=== PATIENT | male | born 1940 | race Caucasian/White ===

== ENCOUNTER → 2016-05-17 | Outpatient (CLI) | payer OTHER ==
[~2016-05-17] MED LIST: ACET-24 PO; CMD5 PO; EPLE25TA3 PO; FEBU40TA PO; FRRG PO; FRS/40 PO; HYDR-4715 PO; HYDR-5688 PO; INSDGI SC; LIDOCAINE TOP; METO50TA7 PO; OXYCODONE PO; ULT50X PO; WARF2.5T8 PO
--- NOTE | 2016-05-17 10:53 | DIAGNOSTIC IMAGING REPORT ---
LEG LENGTH STUDY (WHOLE LEG) CLINICAL HISTORY: LEG LENGTH Discrepancy, left LUMBAR Pain, sacroiliitis COMPARISON STUDY: No previous studies for comparison. FINDINGS: There are advanced arthritic changes involving both knees with marked narrowing medial joint compartments. There is a minimal leg length discrepancy with the left leg as measured from the femoral head to the tibial plafond measures 6 mm longer than the right. IMPRESSION: 1. Advanced bilateral osteoarthritic changes 2. Minimal leg length discrepancy with the left likely measuring 6 mm longer than the right Electronically signed by: Jose Galvez M.D. 05/17/2016 10:51 AM Dictated Date/Time: 05/17/2016 10:43 AM
== END | disposition home or self-care (01) ==
LOC: C.RADBC 10:08
PROVIDERS: ATTEND Physician Assistant
DX: M54.5 Low back pain (principal); M46.1 Sacroiliitis, not elsewhere classified; M17.0 Bilateral primary osteoarthritis of knee

== ENCOUNTER 2016-08-16 06:24 | Inpatient (IN) | payer OTHER ==
[2016-07-29 08:54] VITALS: BMI 33.0
--- NOTE | 2016-07-29 09:38 | PAT Medication Instructions ---
Service Date Jul 29, 2016. Current Home Medication List Eplerenone (Eplerenone), 25 MG PO QAM Febuxostat (Uloric), 40 MG PO QAM Furosemide (Lasix), 40 MG PO QAM Hydralazine Hcl (Apresoline), 20 MG PO BID Hydrocodone/Acetaminophen 5MG/325MG ([place] 5MG/325MG), 1 TABLET PO prn PRN for Pain Insulin Glargine (Lantus), 28 UNITS SC QPM Metoprolol Succ (Toprol Xl) (Toprol-Xl), 50 MG PO QAM Warfarin Sod (Coumadin *), 1 TAB PO 6XWK Warfarin Sod (Jantoven), 2.5 MG PO WK [Lidocaine Cr], 1 DOSE TOP PRN [Oxycodone], 1 TAB PO PRN Medication Instructions For Your Scheduled Surgery - Hold the following medications 5 days prior to surgery per Cardiology instructions: Warfarin Sod (Coumadin *) - Hold the following medications 24 hours prior to surgery: [Lidocaine Cr], 1 DOSE TOP PRN - Hold the following medications the morning of surgery: Eplerenone (Eplerenone), 25 MG PO QAM Furosemide (Lasix), 40 MG PO QAM - Take the following medications the morning of surgery with a sip of water OTHERWISE NOTHING TO EAT OR DRINK AFTER MIDNIGHT: Metoprolol Succ (Toprol Xl) (Toprol-Xl), 50 MG PO QAM Febuxostat (Uloric), 40 MG PO QAM Hydralazine Hcl (Apresoline), 20 MG PO BID Hydrocodone/Acetaminophen 5MG/325MG ([place] 5MG/325MG), 1 TABLET PO prn PRN for Pain (may take if needed up to 4 hours prior to surgery) [Oxycodone], 1 TAB PO PRN (may take if needed up to 4 hours prior to surgery) - Take the following medications as scheduled the night before surgery: Insulin Glargine (Lantus), 28 UNITS SC QPM Hydrocodone/Acetaminophen 5MG/325MG ([place] 5MG/325MG), 1 TABLET PO prn PRN for Pain [Oxycodone], 1 TAB PO PRN If you have any questions please call us at [phone] or [phone] or [phone]
--- NOTE | 2016-07-29 10:09 | DIAGNOSTIC IMAGING REPORT ---
CHEST PREADMISSION(PA/LAT) CLINICAL HISTORY: PAT preoperative evaluation COMPARISON STUDY: 11/09/2009 FINDINGS: Prior median sternotomy. Mild stable cardiomegaly. Lungs are clear. Diaphragms smooth. IMPRESSION: Mild stable cardiomegaly. Otherwise no acute process. Electronically signed by: Adam Womack M.D. 07/29/2016 10:08 AM Dictated Date/Time: 07/29/2016 10:06 AM
[2016-07-29 10:20] LABS: BUN/CREATININE RATIO 19.7 (10-20); CREATININE 1.9 mg/dl (0.60-1.40); POTASSIUM 4.2 mmol/L (3.5-5.1)
[2016-07-29 10:27] LABS: BASO % 0.2 %; BASO ABS # 0.02 K/uL (0-0.2); CALCIUM 8.8 mg/dl (8.5-10.1); COMPLETE YES; EOS % 1.3 %; HEMATOCRIT 37.3 % (42-52); IG% 0.2 %; LYMPH % 14.5 %; LYMPH ABS # 1.23 K/uL (1.2-3.4); MEAN CELL VOLUME 93.7 fL (80-100); MEAN CORPUSCULAR HEMOGLOBIN 30.7 pg (25-34); MEAN CORPUSCULAR HGB CONC 32.7 g/dl (32-36); MEAN PLATELET VOLUME 10.2 fL (7.4-10.4); MONO % 10.7 %; NEUT % 73.1 %; PLATELET COUNT 175 K/uL (130-400); RED BLOOD COUNT 3.98 M/uL (4.7-6.1); WHITE BLOOD COUNT 8.49 K/uL (4.8-10.8)
[2016-07-29 10:35] LABS: INR 2.7 (0.9-1.1); PARTIAL THROMBOPLASTIN RATIO 1.6; PROTHROMBIN TIME (PATIENT) 30.1 SECONDS (9.0-12.0)
[2016-07-29 11:23] LABS: ESTIMATED AVERAGE GLUCOSE 134 mg/dl; HA1C FLAG Normal (Normal)
--- NOTE | 2016-08-11 21:46 | HISTORY & PHYSICAL EXAMINATION ---
DATE OF ADMISSION: 08/16/2016 CHIEF COMPLAINT: Bilateral knee pain, left side greater than right. HISTORY OF PRESENT ILLNESS: The patient is a 76-year-old gentleman from [place], who presents for surgical treatment of his left knee. He has got 12-year history of increasing bilateral knee pain and discomfort, left side greater than right. He has been through extensive conservative treatment. He did have an open meniscectomy in the left knee back in the 1970s but done by Dr. Turpin. Pain has become more debilitating over time. He has got a very limited walking tolerance. Both knees are pretty painful, but realizes he can only get one fixed at a time. He does have a significant heart history with a valve replacement, on Coumadin, followed by Dr. Watson. He is limited in activities due to his knee pain. PAST MEDICAL HISTORY: Significant for 1. Valvular heart disease, status post valve replacement, on Coumadin. 2. Pacemaker placement. 3. Diabetes. Hemoglobin A1c is 6.3. 4. Hypertension. 5. Underlying chronic kidney disease. 6. Low back pain. PAST SURGICAL HISTORY: Include 1. Left knee open meniscectomy in his 1970s. 2. Heart valve repair in 2010 at [facility]. 3. Right hand surgery. ALLERGIES: None. CURRENT MEDICATION: 1. Uloric 40 mg a day for gout. 2. Furosemide 40 mg daily. 3. Eplerenone 25 mg. 4. Metoprolol 50 mg in the morning. 5. Hydralazine 25 mg twice a day. 6. Lantus insulin 28 units at bedtime. 7. Coumadin 5 mg a day. SOCIAL HISTORY: A 76-year-old male patient from [place]. He is . His had both of her knees replaced. MEDICAL DOCTOR: Dr. Vega. HEARING SPECIALIST: Dr. Watson. REVIEW OF SYSTEMS: Negative for current chest pain or shortness of breath. He is diabetic. He controls this quite well. No bleeding problems. No chest pain or shortness of breath. He is on Coumadin. PHYSICAL EXAMINATION: GENERAL: This is a pleasant, elderly male. HEENT: Benign. NECK: Supple. No lymphadenopathy. LUNGS: Clear to auscultation. HEART: Has a regular rate and rhythm. ABDOMEN: Soft, nontender, nondistended. EXTREMITIES: Grossly neurovascularly intact except as follows: Examination of the left knee reveals a varus alignment to his knees. He has got bony hypertrophy medially. Range of motion about 5 degrees short of full extension to 110 degrees of flexion. He has got a varus thrust with weightbearing. He is neurologically intact. Examination of the right knee reveals varus alignment. He has a varus thrust with weightbearing. Range of motion is 5-125. No instability. X-RAYS: X-rays of both knee which revealed advanced bilateral knee DJD. He has got complete loss of the joint space bilaterally. The left side is a bit worse than the right. He has got subchondral sclerosis and some destruction of the medial tibial plateau. ASSESSMENT: A 76-year-old male with pretty significant underlying heart history including valve replacement and pacemaker with advanced bilateral knee degenerative joint disease. He has failed conservative treatment and would like to proceed with operative treatment. He would like to have both of his knees replaced, but realize he cannot do both at the same time. PLAN: We are going to take him to the operating room and do a left total knee replacement. The risks and benefits of this procedure were explained to the patient including but not limited to DVT, PE, , infection, neurological injury, vascular injury, bleeding, pain, limited range of motion, stiffness, failure to relieve symptoms, incomplete relief of symptoms, need for further surgery in the future, fracture, leg length inequality, nerve palsy, dislocation, persistent pain, incomplete relief of symptoms, etc. The patient understands and desires to proceed. Informed consent was obtained. His blender snuff is Dr. Watson and will have him follow him in the hospital. He will stop his Coumadin 5 days preop. We will get a stat PT and INR on the morning of surgery. He knows to take his metoprolol the morning of surgery. As far as discharge plans, he is planning to be discharged to home with his 's assistance and the [facility] home health program. We will start him on Coumadin immediately postop. We will have to consult with Dr. Watson whether he needs Lovenox.
[~2016-08-16] VITALS: Ht 170.2 cm; Wt 97.4 kg
[2016-08-16] VITALS (10 sets, daily range): BP systolic 117–149; BP diastolic 63–80; PULSE 60–92; TEMP 36.4–37; O2SAT 93–100; Ht 170.2 cm; Wt 97.4 kg
[~2016-08-16 06:24] MED LIST changes: -ACET-24 PO; +ACETAMINOPHEN 500 MG TAB PO SCH; +BUPIVACAINE LIPOSOME 266 MG, BUPIVACAINE/EPINEPHRINE INJ 50 ML, SODIUM CHLORIDE 0.9% PF... INFIL SCH; +CEFAZOLIN 2000 MG/60 ML D5W 60 ML IV SCH; +FAMOTIDINE 20 MG TAB PO SCH; -FRRG PO; +GABAPENTIN 300 MG CAP PO SCH; +LACTATED RINGER'S 1000ML 1,000 ML IV SCH; +METOCLOPRAMIDE HCL 10 MG TAB PO SCH; +SCOPOLAMINE 1.5 MG TDSY TD SCH; +TRANEXAMIC ACID INJ 1,000 MG in SODIUM CHLORIDE 0.9% 100ML 100 ML IV SCH; -ULT50X PO
[2016-08-16] MEDS ORDERED: BUPIVACAINE 0.25% 30 ML VIAL ONE (06:41)
[2016-08-16] MEDS ORDERED: BUPIVACAINE 0.5 % 5 MG/1 ML PF 10ML VIAL ONE (06:41)
--- NOTE | 2016-08-16 06:50 | History & Physical Bridge Note ---
H&P Re-Evaluation Bridge Note: I have examined the patient, reviewed the History & Physical and in the interval since the performance of the History & Physical I have noted the following changes of clinical significance: No changes noted
[2016-08-16 07:13] LABS: INR 1.2 (0.9-1.1); PARTIAL THROMBOPLASTIN RATIO 1.2
[2016-08-16] MEDS ORDERED: FENTANYL CITRATE INJ 50 MCG/1 ML 2 ML VIAL ONE ×2 (07:14→10:32)
[2016-08-16] MEDS ORDERED: MIDAZOLAM HCL 1 MG/ML 2ML VIAL ONE (07:14)
[2016-08-16] MEDS ORDERED: BUPIVACAINE LIPOSOME 1/3% 266 MG/20 ML VIAL INFIL ONE (08:26)
[2016-08-16] MEDS ORDERED: BUPIVACAINE/EPINEPHRINE 0.25% 1:200,000 30 ML VIAL ONE (08:26)
[2016-08-16] MEDS ORDERED: BACITRACIN 50000 UNIT VIAL ONE (08:26)
[2016-08-16] MEDS ORDERED: SODIUM CHLORIDE 0.9% PF 50 ML VIAL ONE (08:26)
[2016-08-16] MEDS ORDERED: ROCURONIUM BROMIDE 10 MG/ML 5 ML VIAL ONE (08:27)
[2016-08-16] MEDS ORDERED: LIDOCAINE HCL 2% 2 ML VIAL (20MG/ML) ONE (08:27)
[2016-08-16] MEDS ORDERED: PROPOFOL IV EMULSION 10 MG/ML 20 ML VIAL IV ONE (08:27)
[2016-08-16] MEDS ORDERED: ONDANSETRON INJ 2 MG/ML 2 ML VIAL IV PRN ×2 (09:15→10:30)
[2016-08-16] MEDS ORDERED: KETOROLAC TROMETHAMINE 30 MG/ML VIAL IV. PRN (09:15)
[2016-08-16] MEDS ORDERED: LABETALOL HCL IV 5 MG/ML 20ML IV PRN (09:15)
[2016-08-16] MEDS ORDERED: ATROPINE SULFATE 0.1 MG/ML 5ML SYR IV PRN (09:15)
[2016-08-16] MEDS ORDERED: ETOMIDATE 2 MG/ML 20 ML VIAL IV ONE (09:50)
[2016-08-16] MEDS ORDERED: ONDANSETRON INJ 2 MG/ML 2 ML VIAL ONE (09:50)
[2016-08-16] MEDS ORDERED: EpHEDrine SULFATE INJ 50 MG/ML AMP ONE (10:10)
[2016-08-16] MEDS ORDERED: SODIUM CHLORIDE 0.9% 1000ML 1,000 ML IV SCH (10:28)
--- NOTE | 2016-08-16 10:28 | [facility] Post Operative Brief Note ---
Immediate Operative Summary Operative Date Aug 16, 2016. Pre-Operative Diagnosis Left Knee Advanced Degenerative Joint Disease Post-Operative Diagnosis Left Knee Advanced Degenerative Joint Disease Procedure(s) Performed Left Total Knee Arthroplasty Surgeon Dr. Light Damper Maker Surgeon(s) DEIRDRE Gutierrez Estimated Blood Loss 50 ml Findings Left Knee DJD Fluids (cc crystalloids) 1400 cc Specimens A. Left Knee Bone and Tissue Drains None Anesthesia General Complication(s) None Disposition Recovery Room / PACU
[2016-08-16] MEDS ORDERED: METOCLOPRAMIDE HCL INJ 5 MG/ML 2 ML VIAL IV PRN (10:30)
[2016-08-16] MEDS ORDERED: BISACODYL 10 MG SUPP PR PRN (10:30)
[2016-08-16] MEDS ORDERED: ZOLPIDEM TARTRATE 5 MG TAB PO PRN (10:30)
[2016-08-16] MEDS ORDERED: SILVER SULFADIAZINE 1% CR 50 GM JAR EXT PRN (10:30)
[2016-08-16] MEDS ORDERED: MAGNESIUM HYDROXIDE SUSP 30 ML UDC PO PRN (10:30)
[2016-08-16] MEDS ORDERED: TAMSULOSIN HCL 0.4 MG CAP PO PRN (10:30)
[2016-08-16] MEDS ORDERED: ALUMINUM/MAGNESIUM/SIMETH (MAALOX MAX) 30 ML UDC PO PRN (10:30)
[2016-08-16] MEDS ORDERED: NO NSAIDS SCH (10:30)
[2016-08-16] MEDS ORDERED: DEXTROSE 50% 50 ML SYR IV PRN (10:45)
[2016-08-16] MEDS ORDERED: GLUCOSE 10 TABS/TUBE PO PRN (10:45)
[2016-08-16] MEDS ORDERED: GLUCAGON FOR INJ 1 MG VIAL SQ PRN (10:45)
[2016-08-16] MEDS ORDERED: GLUCOSE 40% GEL 15 GM TUBE PO PRN (10:45)
[2016-08-16] MEDS: HYDROmorphone INJ 2 MG/ML SYR/VIAL IV PRN ×2 (10:48→10:55)
--- NOTE | 2016-08-16 11:12 | DIAGNOSTIC IMAGING REPORT ---
TWO VIEWS LEFT KNEE CLINICAL HISTORY: Postoperative examination. FINDINGS: AP and crosstable lateral portable views of the left knee are obtained. A left knee arthroplasty is in near anatomic alignment. There has been undersurface remodeling of the patella. No acute fracture is seen. There are expected postoperative changes around the knee including skin clips, soft tissue edema, and subcutaneous gas. Advanced atherosclerotic calcification is noted in the popliteal artery. IMPRESSION: Expected postoperative changes status post left knee arthroplasty. No acute fracture is seen. Electronically signed by: Devonte Lassiter M.D. 08/16/2016 11:11 AM Dictated Date/Time: 08/16/2016 11:11 AM
--- NOTE | 2016-08-16 11:16 | Anesthesiology Progress Note ---
Anesthesia Post Op Note Date & Time Aug 16, 2016 at 11:16 Vital Signs Pain Intensity: 2 Vital Signs Past 12 Hours Date Time Temp Pulse Resp B/P (MAP) Pulse Ox O2 Delivery O2 Flow Rate FiO2 08/16/16 11:10 36.5 08/16/16 11:06 63 17 123/57 96 08/16/16 11:06 63 17 08/16/16 11:01 60 15 08/16/16 11:01 60 15 125/68 98 08/16/16 10:56 60 17 114/60 98 08/16/16 10:56 60 17 08/16/16 10:51 64 16 124/57 97 08/16/16 10:51 61 16 08/16/16 10:46 60 17 08/16/16 10:46 60 17 120/51 97 08/16/16 10:41 63 20 08/16/16 10:41 63 20 118/55 97 08/16/16 10:40 133/60 08/16/16 10:36 36.3 69 16 133/60 96 Mask 10 08/16/16 07:01 36.7 92 20 149/80 93 Room Air Notes Mental Status: alert / awake / arousable, participated in evaluation Pt Amnestic to Procedure: Yes Nausea / Vomiting: adequately controlled Pain: adequately controlled Airway Patency, RR, SpO2: stable & adequate BP & HR: stable & adequate Hydration State: stable & adequate Anesthetic Complications: no major complications apparent
[2016-08-16] MEDS: FERROUS GLUCONATE 324 MG TAB PO SCH ×2 (13:41→17:28)
[2016-08-16] MEDS: ACETAMINOPHEN 500 MG TAB PO SCH ×2 (13:42→21:11)
[2016-08-16] MEDS: EPLERENONE 25 MG TAB PO SCH (13:57)
--- NOTE | 2016-08-16 14:47 | Progress Note ---
Orthopedic SOAP Note Subjective Date of Service: Aug 16, 2016. Post OP Day: Post-op Day #0 Reports: feeling well Additional Notes: No chest pain or SOB. Pain well controlled 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 (3) S/P heart valve repair Status: Chronic Objective calves soft nontender, N/V intact, dressing C/D/I, A&O x3 Leg well-aligned. N/V Intact. Date Time Temp Pulse Resp B/P (MAP) Pulse Ox O2 Delivery O2 Flow Rate FiO2 08/16/16 14:25 60 16 125/70 (88) 100 08/16/16 13:25 61 18 125/69 (87) 99 08/16/16 12:30 63 18 117/69 (85) 99 08/16/16 12:05 60 18 129/71 (90) 97 08/16/16 11:25 36.4 61 16 125/69 (87) 99 Nasal Cannula 2.0 08/16/16 11:25 Nasal Cannula 2.0 08/16/16 11:25 99 Nasal Cannula 2.0 08/16/16 11:10 36.5 08/16/16 11:06 63 17 123/57 96 08/16/16 11:06 63 17 08/16/16 11:01 60 15 08/16/16 11:01 60 15 125/68 98 08/16/16 10:56 60 17 114/60 98 08/16/16 10:56 60 17 08/16/16 10:51 64 16 124/57 97 08/16/16 10:51 61 16 08/16/16 10:46 60 17 08/16/16 10:46 60 17 120/51 97 08/16/16 10:41 63 20 08/16/16 10:41 63 20 118/55 97 08/16/16 10:40 133/60 08/16/16 10:36 36.3 69 16 133/60 96 Mask 10 08/16/16 07:01 36.7 92 20 149/80 93 Room Air Laboratory Results 24 Hours: Test 08/16/16 06:55 Prothromb Time International Ratio 1.2 Prothrombin Time 13.0 SECONDS Assessment Post-op from Right TKR. Doing well. Pain controlled. N/V intact. Plan 1.) DVT prophylaxis - TEDS, SCDs, and Coumadin to restart at loading dose tonight. 2) PT/OT - Left TKR Protocol 3.) Antbiotics for 24 hours 4.) Pain control - doing well with current tx 5.) Disposition - Plan to discharge to home with home health once recovered.
[2016-08-16] MEDS: CEFAZOLIN IV 2,000 MG in DEXTROSE 5% 50ML 50 ML IV SCH ×2 (15:42→23:37)
--- NOTE | 2016-08-16 15:55 | Cardiology Consultation ---
Cardiology Consultation Date of Service Aug 16, 2016. Cardiology Consultation Admission date:08/16/16 Date of consultation: 08/16/[address] Light Reason for consultation: Post-operative cardiac care HPI: Mr. Ortega is a very pleasant 76 yo gentleman who underwent elective L TKR with Dr. Light on 08/16/16. He was seen in pre-op risk assessment by Joanna Ortiz PA-C and Dr. Watson in our office on 07/27/16. Post op day #0 patient states that he is feeing well. No significant pain at incision site. Denies cp, sob, palpitations, lightheadedness or dizziness. He has received approximately 2L of IVF in the OR. PSHX: INSERT/REPLACE PACEMAKER,ATRIAL/VENTRICULAR 01/11/2011 NEW DDD PACEMAKER IMPLANT performed by MITALI LU IV at [facility] [place] MITRAL VALVE W/BYPASS 01/03/2011 REPLACEMENT MITRAL VALVE performed by FAROOQ FITZGERALD at [place] [facility] [place] OR KNEE SURGERY 1969 PMHX: 1. Prior mitral valve and tricuspid valve repair with complex mitral valve repair and annuloplasty, December 2010. 2. Intraoperative Mason maze procedure with radiofrequency ablation. 3. Postoperative atrial flutter, now with persistent atrial fibrillation. 4. Status post dual-chamber pacemaker insertion for conduction system disease, December 2010. 5. History of past acute hepatic impairment, 2010, resolved. 6. Moderate chronic renal insufficiency. 7. Calcific aortic valve disease, moderate to borderline severe. FAMHX: Noncontributary. SOCHX: Denies alcohol, tobacco or recreational drug use. Retired lives at home. ROS: See HPI for pertinent positives. All other 10 point review of systems is negative. ALLERGIES: Allopurinol and spironolactone. OUTPATIENT MED LIST: ULORIC 40 MG Tablet TAKE (1) TABLET DAILY. furosemide (LASIX) 40 MG Tablet TAKE (1) TABLET DAILY. Eplerenone 25 MG Tablet TAKE (1) TABLET DAILY. hydrALAZINE (APRESOLINE) 25 MG Tablet TAKE (1) TABLET TWICE A DAY. LANTUS 100 UNIT/ML injection INJECT 28 UNITS AT BEDTIME warfarin sodium (COUMADIN) 5 MG Tablet TAKE 1 TABLET ONCE DAILY, IN THE EVENING, for blood thinner metoprolol succinate XL (TOPROL XL) 50 MG TB24 TAKE 1 TABLET DAILY. BD INSULIN SYRINGE ULTRAFINE 31G X 07/05" 0.3 ML MISC USE 1 DAILY. INSULIN SYRINGE-NEEDLE U-100 30G X 1/2" 1 ML MISC Use as directed PHYSICAL: T: 36.4 HR: 60 BP: 123/60 RR: 12 GEN: A+Ox3. NAD. HEENT exam is normocephalic and atraumatic. Neck is thick. There is no jugular venous distention. There are no carotid bruits. Carotid pulses are 2/4 without delay. Lungs are clear to auscultation. Cardiovascular exam is regular with a paced rhythm. There is a harsh grade III/ systolic murmur at the right upper sternal border. S-2 remains preserved. There is no diastolic murmur. Abdomen is soft, nontender. Extremities without cyanosis or clubbing. There is no peripheral edema. There are intact distal pulses. IMPRESSION: 1. Post-operative cardiology evaluation and risk assessment prior to undergoing planned left total knee arthroplasty with Dr. Light on 08/16/16 with nerve block 2. History of mitral and tricuspid valve repair in 2010 3. Moderate aortic stenosis 4. Chronic afib on chronic anticoagulation therapy 5. S/P atrial flutter ablation 6. Dual chamber pacemaker - 12/2010 - stable device function per interrogation today. 7. Mildly reduced RV systolic function with normal LV systolic function. PLAN: -will d/c IVF given valvular disease and reduced RV systolic function. Will follow volume status clinically. -home meds already restarted, no changes at this time -coumadin restarted -post op DVT prevention already started. -will follow.
[2016-08-16] MEDS ORDERED: WARFARIN SOD 10 MG TAB PO SCH (16:00)
[2016-08-16] MEDS: INSULIN HUMAN REGULAR SC SCH ×2 (17:20→21:09)
[2016-08-16] MEDS ORDERED: FRRG PO (20:13)
[2016-08-16] MEDS ORDERED: ULT50X PO (20:13)
[2016-08-16] MEDS ORDERED: ACET-24 PO (20:13)
--- NOTE | 2016-08-16 20:16 | Discharge Instructions ---
Discharge Instructions Date of Service Aug 16, 2016. Admission Reason for Admission: Left Knee Degenerative Joint Disease Discharge Discharge Diagnosis / Problem: Left Knee REplacement Discharge Goals Goal(s): Decrease discomfort, Improve function, Increase independence, Improve disease control, Therapeutic intervention Activity Recommendations Activity Limitations: per Instructions/Follow-up section Weightbearing Status: Left weightbearing . Instructions / Follow-Up Instructions / Follow-Up ACTIVITY RECOMMENDATIONS: Physical Therapy: * You will go to physical therapy three times each week for four to six weeks after your surgery in order to regain your knee range of motion and to retrain your knee to work properly. * It is just as important to make sure you are getting your knee perfectly straight as it is to regain your knee bend. * Taking a pain pill an hour before therapy can help you have a more productive and comfortable therapy session. Home Exercise: * You were shown a series of exercises (heel props, heel slides, etc.) in the hospital. Do these exercises three to four times each day including the exercises you were shown in physical therapy. Walking: * Get up and walk several times each day. For the first four weeks, try not to stand or walk for more than one hour at a time. If you do stand or walk for more than one hour, you will not hurt anything, but your knee and leg will likely swell. * As you feel comfortable, you may change from the walker or crutches to a cane and then to independent walking. MEDICATIONS: New Medicine: * You will likely be taking one or more of these medications: 1. Tramadol - A quick and shorter-acting pain medication. Take one to two tablets every four to six hours to lessen your pain. 2. Iron Sulfate - Take two times each day for the month after surgery to help you replace the blood lost during surgery. 3. Coumadin - Thins your blood to lessen the chance of forming a blood clot. The dose of this is different for each person and is based on your blood tests that are done every Monday and . * The most common side effects of pain medicine and iron are nausea and constipation. If nausea or constipation is too much of a problem or if you have any questions about your new medicines or doses, call [facility] at [phone]. We will try to help you manage these issues. VERY IMPORTANT TO READ AND REVIEW" Pain: * The immediate post-operative period after knee replacement surgery is often quite painful. * You are given a prescription for pain medicine. You should take it, as directed, when you need it, especially before physical therapy and before going to bed. Pain that interferes with sleep is very common and can last several months. * You will likely need pain medicine for the first four to six weeks. It will not stop all of the pain. The pain will lessen and as you feel better, you may change to milder pain medicine such as Tylenol. * The most common side effects of pain medicine are nausea and constipation, so don't take more than you need. SPECIAL CARE INSTRUCTIONS: TEDs/Elastic Stockings: * The white elastic stockings help limit swelling and prevent blood clots from forming in your legs. The more you wear them, the more they work. * Wear them for six weeks after knee replacement surgery and four weeks after partial knee replacement. Prevention of Infection: * Take antibiotics one hour before any dental cleaning, dental work, urological procedure, gastrointestinal procedure or any invasive surgery in order to prevent your new joint from getting infected. * You may get the antibiotics from the doctor performing the procedure or you may call our office at before and we will call in a prescription to the pharmacy of your choice. Things to Watch For: * Drainage from the incision site that occurs more than one week after your surgery. * Severely increased knee/leg pain or swelling. * Increased redness at the incision site. * Fever above 102 degrees Fahrenheit. * Unusual chest pain or shortness of breath. * Unusual pain or burning with urination. Call [facility] at with any of the above problems or if you have any questions about your medicines or recovery. FOLLOW UP VISIT: Make an appointment to see your doctor for approximately two weeks after surgery for a progress check and staple removal by calling the office at . Current Hospital Diet Patient's current hospital diet: Diabetes Type 2 Diet Discharge Diet Recommended Diet: Diabetes Type 2 Diet Procedures Procedures Performed: Left Total Knee Arthroplasty Pending Studies Studies pending at discharge: no Laboratory Results Hemoglobin A1c Test 07/29/16 09:42 Range/Units Estimated Average Glucose 134 mg/dl Hemoglobin A1c 6.3 H 4.5-5.6 % Medical Emergencies . Who to Call and When: Medical Emergencies: If at any time you feel your situation is an emergency, please call 911 immediately. . Non-Emergent Contact Non-Emergency issues call your: Surgeon . "Provider Documentation" section prepared by Musa Light. . VTE Core Measure Inpt VTE Proph given/why not?: Warfarin (Coumadin), Yvan Serra, SCD's
[2016-08-16] MEDS: DOCUSATE SODIUM 100 MG CAP PO SCH (21:06)
[2016-08-16] MEDS: SENNA 8.6 MG TAB PO SCH (21:06)
[2016-08-16] MEDS: HydrALAZINE 10 MG TAB PO SCH (21:06)
[2016-08-17 02:50] VITALS: BP 119/66; PULSE 92; TEMP 36.7; O2SAT 94
[2016-08-17] MEDS: TRAMADOL HCL 50 MG TAB PO PRN ×3 (04:57→14:08)
[2016-08-17] MEDS: ACETAMINOPHEN 500 MG TAB PO SCH ×3 (05:24→21:08)
[2016-08-17 05:39] LABS: MEAN CELL VOLUME 96.6 fL (80-100); MEAN CORPUSCULAR HEMOGLOBIN 30.3 pg (25-34); MEAN CORPUSCULAR HGB CONC 31.4 g/dl (32-36); MEAN PLATELET VOLUME 10.7 fL (7.4-10.4); PLATELET COUNT 178 K/uL (130-400); RED BLOOD COUNT 3.83 M/uL (4.7-6.1); WHITE BLOOD COUNT 9.15 K/uL (4.8-10.8)
[2016-08-17 05:49] LABS: INR 1.2 (0.9-1.1); PROTHROMBIN TIME (PATIENT) 13.4 SECONDS (9.0-12.0)
[2016-08-17 06:03] LABS: POTASSIUM 4.7 mmol/L (3.5-5.1)
[2016-08-17 06:05] LABS: CALCIUM 8.7 mg/dl (8.5-10.1)
[2016-08-17 07:15] VITALS: BP 117/62; PULSE 62; TEMP 37; O2SAT 90
--- NOTE | 2016-08-17 08:05 | Anesthesiology Progress Note ---
Anesthesia Post Op Note Date & Time Aug 17, 2016 at 08:04 Vital Signs Vital Signs Past 12 Hours Date Time Temp Pulse Resp B/P (MAP) Pulse Ox O2 Delivery O2 Flow Rate FiO2 08/17/16 07:24 Room Air 08/17/16 07:15 37.0 62 19 117/62 (80) 90 Room Air 08/17/16 02:50 36.7 92 19 119/66 (83) 94 Room Air 08/16/16 23:59 Room Air 08/16/16 22:43 37.0 63 16 124/63 (83) 93 Room Air 08/16/16 21:04 60 128/68 (88) 96 Room Air Notes Mental Status: alert / awake / arousable, participated in evaluation Pt Amnestic to Procedure: Yes Nausea / Vomiting: adequately controlled Pain: adequately controlled Airway Patency, RR, SpO2: stable & adequate BP & HR: stable & adequate Hydration State: stable & adequate Anesthetic Complications: no major complications apparent
[2016-08-17] MEDS: INSULIN HUMAN REGULAR SC SCH ×4 (08:27→21:05)
[2016-08-17] MEDS: PANTOprazole SOD 40 MG TAB PO SCH (08:30)
[2016-08-17] MEDS: METOPROLOL SUCC 50MG EXT REL TAB PO SCH (08:30)
[2016-08-17] MEDS: MULTIVITAMIN TAB PO SCH (08:30)
[2016-08-17] MEDS: FERROUS GLUCONATE 324 MG TAB PO SCH ×3 (08:30→17:50)
[2016-08-17] MEDS: DOCUSATE SODIUM 100 MG CAP PO SCH ×2 (08:30→21:01)
[2016-08-17] MEDS: FEBUXOSTAT 40 MG TAB PO SCH (08:30)
[2016-08-17] MEDS: EPLERENONE 25 MG TAB PO SCH (08:31)
[2016-08-17] MEDS: HydrALAZINE 10 MG TAB PO SCH ×2 (08:31→21:01)
[2016-08-17] MEDS ORDERED: FUROSEMIDE 40 MG TAB PO SCH (09:00)
--- NOTE | 2016-08-17 09:24 | OPERATIVE REPORT ---
DATE: 08/16/2016 PREOPERATIVE DIAGNOSIS: Left knee DJD. POSTERIOR OPERATIVE DIAGNOSIS: Same. PROCEDURE PERFORMED: Left cemented posterior stabilized total knee arthroplasty. SURGEON: Dr. Musa Light. FOCUSER: Steffen Holland PA-C. COMPLICATIONS: None. ESTIMATED BLOOD LOSS: 50 cc. FLUID REPLACEMENT: 1400 cc of crystalloid. TOURNIQUET TIME: 58 minutes at 300 mmHg. ANESTHESIA: General. SPECIMENS: Left knee sent for pathology. OPERATIVE INDICATIONS: The patient is a 76-year-old gentleman with multiple underlying medical comorbidities who has had a long history of bilateral knee pain and discomfort. He had an open meniscectomy of his left knee done in the 70s. Over the years he developed increasing and progressive knee pain and discomfort. He failed conservative treatment. He was having trouble even getting around with his left knee. He elected to proceed with left total knee arthroplasty. OPERATIVE FINDINGS: Operative findings revealed advanced left knee DJD. He had grade 4 [id number] disease in all three compartments, most severe in the medial side. He had eburnation of the medial femoral condyle and medial tibial plateau. He had a large joint effusion. OPERATIVE IMPLANTS: 1. Biomet Vanguard size 70 left posterior stabilized femoral component. 2. A Biomet size 79 tibial tray. 3. 10 mm posterior stabilized polyethylene insert. 4. 31 x 8 all poly patella. OPERATIVE PROCEDURE: The patient was taken to the operating room, identified and placed on the operating room table in supine position. All contact areas were appropriately padded. IV antibiotics were provided by anesthesia team. General anesthetic was implemented due to his history of spinal stenosis and anticoagulation. A left thigh tourniquet was then placed. The left lower extremity was then prepped and draped in usual sterile fashion. The left leg was elevated and exsanguinated with Esmarch. Tourniquet was placed at 300 mmHg. An anterior approach to the left knee was then performed through a longitudinal incision centered over the patella. Sharp dissection was carried through the subcutaneous tissues down to the level of the extensor mechanism. A medial parapatellar arthrotomy incision was made. Some periosteal dissection was carried out medially. The fat pad was dissected from beneath the patellar tendon. The lateral patellofemoral ligament was released. Patella was everted and the knee was flexed. The osteophytes were taken off the distal femur. The ACL was chronically absent. The PCL was released from the distal femur. The tibia subluxated anteriorly. The external alignment jig was then placed in the anterior face of the tibia and adjusted 16 mm medially. Proximal tibial cuts were made to be essentially flush with the most efficient aspect of the posteromedial tibial plateau. Some osteophytes were taken off the medial and posteromedially. The tibia was sized to a size 79. Attention was then drawn to the femur. The distal femur was entered with a sharp drill bit and the intramedullary canal was suctioned. A left 6 degree valgus cutting guide was placed. The distal femoral cutting block was pinned in place. Distal femoral cut was made to take an additional 3 mm removed off the distal femur. The femur was then sized to a size 70. We did down-size this slightly. The AP cutting block was pinned parallel to the epicondylar axis which was 4 degrees of external rotation. The anterior cut, anterior chamfer cut, posterior cut, posterior chamfer cuts were made. Box cutting guide was placed and adjusted slightly lateral. The box cut was made. The knee was flexed. The remnants of the medial and lateral menisci were excised. The osteophytes were taken off the posterior aspect of the femur. A trial femoral component was placed. The tibial tray was pinned in maximum external rotation and drill and stem punch were used to scrape the defect from the proximal tibia for the tibial tray. The knee was then trialed and the 10 mm insert fit most appropriately. Attention was then drawn to the patella. The patella was cleaned of all soft tissues. Patellar thickness was measured 23 mm in thickness and was cut down to 14. Upon doing this he did have a bipartite patella and the superolateral portal area was fairly loose. Therefore I did skeletonize this out of the tendon and remove it. The patella was then sized to a size 31. Lug holes were drilled for a 31 patella. Lateral ostephyte was removed. The patella button was placed. The knee was taken through a range of motion and the patella tracked nicely with no thumbs test. Attention was then drawn toward placing the permanent components. All trial components were removed. Bone plug was placed in the distal femur to limit blood loss. A double batch Pal[place]os G cement was mixed. A left size 70 posterior stabilized femoral component, 70 tibial tray, 10 mm posterior stabilized polyethylene insert, and a 31 x 8 all poly patella were then cemented into place. These were brought out under full extension until the cement had hardened. A final cement check was then performed. The pericapsular tissues were injected with 100 cc of a combination of 20 cc of Exparel, 30 cc of normal saline, 50 cc of 0.25% Marcaine with epinephrine. Tourniquet was then let down for a final tourniquet time of 58 minutes. Hemostasis was assured with the use of electrocautery. The external mechanism was then closed with a combination of 1 PDS suture and a #1 Vicryl suture in a [id number] fashion. Extensor mechanism was checked and found to be intact. The subcutaneous tissues were then closed with 2-0 Dexon suture in a buried interrupted fashion. Skin was closed with skin vimal. The leg was then clean, dry and a sterile dressing composed of Xeroform, 4x4's, sterile cast padding and Kieran bandage were applied. The patient was then brought out of general anesthesia and transferred to the recovery room in stable condition. The patient tolerated the procedure well and there were no complications. All instrument, needle and sponge counts were correct at the end of the operation.
--- NOTE | 2016-08-17 10:22 | Orthopedic Progress Note ---
Orthopedic Progress Note Date of Service Aug 17, 2016. Subjective Post OP Day: 1 Reports: feeling well Additional Notes: Knee Sore. No chest pain or SOB Objective calves soft nontender, N/V intact, dressing C/D/I, A&O x3, toes mobile, CMS intact Date Time Temp Pulse Resp B/P (MAP) Pulse Ox O2 Delivery O2 Flow Rate FiO2 08/17/16 07:24 Room Air 08/17/16 07:15 37.0 62 19 117/62 (80) 90 Room Air 08/17/16 02:50 36.7 92 19 119/66 (83) 94 Room Air 08/16/16 23:59 Room Air 08/16/16 22:43 37.0 63 16 124/63 (83) 93 Room Air 08/16/16 21:04 60 128/68 (88) 96 Room Air 08/16/16 19:30 Nasal Cannula 2.0 08/16/16 19:10 36.5 80 16 138/76 (96) 95 Room Air 08/16/16 14:51 36.4 60 16 123/68 (86) 100 Nasal Cannula 2.0 08/16/16 14:25 60 16 125/70 (88) 100 08/16/16 13:25 61 18 125/69 (87) 99 08/16/16 12:30 63 18 117/69 (85) 99 08/16/16 12:05 60 18 129/71 (90) 97 08/16/16 11:25 36.4 61 16 125/69 (87) 99 Nasal Cannula 2.0 08/16/16 11:25 Nasal Cannula 2.0 08/16/16 11:25 99 Nasal Cannula 2.0 08/16/16 11:10 36.5 08/16/16 11:06 63 17 123/57 96 08/16/16 11:06 63 17 08/16/16 11:01 60 15 08/16/16 11:01 60 15 125/68 98 08/16/16 10:56 60 17 114/60 98 08/16/16 10:56 60 17 08/16/16 10:51 64 16 124/57 97 08/16/16 10:51 61 16 08/16/16 10:46 60 17 08/16/16 10:46 60 17 120/51 97 08/16/16 10:41 63 20 08/16/16 10:41 63 20 118/55 97 08/16/16 10:40 133/60 08/16/16 10:36 36.3 69 16 133/60 96 Mask 10 Laboratory Results 24 Hours: Test 08/17/16 05:05 Hematocrit 37.0 % Hemoglobin 11.6 g/dL Prothromb Time International Ratio 1.2 Prothrombin Time 13.4 SECONDS Assessment & Plan Assessment: Post-op from Right TKR. Doing well. Pain controlled. N/V intact. Plan: 1.) DVT prophylaxis - TEDS, SCDs, and Coumadin to keep INR between 2 and 3. 2) PT/OT - Left TKR Protocol 3.) Pain control - doing well with current tx 4.) Disposition - Plan to discharge to home with home health once recovered.
[2016-08-17] MEDS ORDERED: TAMSULOSIN HCL 0.4 MG CAP PO ONE (12:00)
--- NOTE | 2016-08-17 13:17 | Cardiology Follow-Up ---
Subjective Subjective Date of Service: Aug 17, 2016. Pt evaluation today including: conversation w/ patient, conversation w/ family , physical exam, chart review, lab review, review of studies, review of inpatient medication list Additional Details: Pt seen and examined, states that he's felling "ok". Some knee pain but just ambulated and due for pain meds. Denies cp, sob, palpitations, lightheadedness or dizziness. Called by nursing, patient having an issue voiding overnight, had to be straight cathed x 2, no complaints of hesistancy, urgency or abdominal distention per patient. No previous history of similar symptoms. 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 (3) S/P heart valve repair Status: Chronic Review of Systems Respiratory: No see HPI, No cough, No sputum, No wheezing, No shortness of breath, No dyspnea on exertion, No dyspnea at rest, No hemoptysis, No problem reported Cardiac: No see HPI, No chest pain, No orthopnea, No PND, No edema, No claudication, No palpitations, No problem reported Objective Vital Signs Last Vital Signs Documentation Date Time Temp Pulse Resp B/P (MAP) Pulse Ox O2 Delivery O2 Flow Rate FiO2 08/17/16 07:24 Room Air 08/17/16 07:15 37.0 62 19 117/62 (80) 90 08/16/16 19:30 2.0 Physical Exam: General Appearance: WD/WN, no apparent distress Eyes: bilateral eyes normal inspection, bilateral eyes PERRL, bilateral eyes EOMI ENT: normal ENT inspection, hearing grossly normal, pharynx normal Neck: supple, no adenopathy, thyroid normal, no JVD, no carotid bruits, trachea midline Respiratory/Chest: chest non-tender, lungs clear, normal breath sounds, no respiratory distress, no accessory muscle use Cardiovascular: regular rate, rhythm, no edema, no JVD, + systolic murmur (4/6 mid to late belen, rsb, 2nd ics with radiation to b/l carotids), + gallop/S4 Abdomen: normal bowel sounds, non tender, soft, no organomegaly Extremities: normal inspection, no pedal edema, no calf tenderness Neurologic/Psychiatric: 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 urinary retention patient with scopolamine patch that was placed post-operatively, the likely culprit will d/c it now doubt primary prostate issue but will start flomax for completeness sake now my suspicion is that once effects of scopolamine wear off, retention will resolve 2. aortic stenosis stable 3. diastolic dysfunction stable, does not examine as volume overloaded cont lasix, eplerenone and toprol 4. HTN stable cont hydralazine 5. afib stable coumadin restarted
[2016-08-17 14:55] VITALS: BP 150/70; PULSE 64; O2SAT 95
[2016-08-17 15:26] VITALS: BP 127/87; PULSE 80; TEMP 36.7; O2SAT 94
--- NOTE | 2016-08-17 15:37 | Progress Note ---
Progress Note Date of Service Aug 17, 2016. Progress Note Pt re-examined to follow up on urinary retention, has not urinated since scopolamine patch removed but was cathed around that time. Pt now confused, nonfocal, patient's reports that he seems to be off. Nursing reports that he was given two doses of ultram, last dose at 1400 and confusion started around 1430. Discussed with Dr. Light, will cont to monitor patient.
[2016-08-17] MEDS ORDERED: WARFARIN SOD 7.5 MG TAB PO ONE (16:00)
[2016-08-17] MEDS: SENNA 8.6 MG TAB PO SCH (21:01)
[2016-08-17 23:05] VITALS: BP 126/60; PULSE 90; TEMP 36.9; O2SAT 92
[2016-08-18] MEDS: ACETAMINOPHEN 500 MG TAB PO SCH ×3 (05:28→21:37)
[2016-08-18 06:01] LABS: INR 1.9 (0.9-1.1); PROTHROMBIN TIME (PATIENT) 20.7 SECONDS (9.0-12.0)
[2016-08-18 06:55] VITALS: BP 117/72; PULSE 85; TEMP 36.6; O2SAT 93
--- NOTE | 2016-08-18 07:54 | Clinical Documentation Query ---
CLINICAL DOCUMENTATION QUERY Query #1/2 76-y/o male who has undergone left cemented TKR. Current documentation includes, patient as having a history of CHF, valvular HD, moderate aortic stenosis, and mildy reduced RV systolic function with normal LV systolic function. The medical record documentation is now expected to include definitive and explicit description of the patient's heart failure; vague terms such as "heart failure," ventricular dysfunction," and "CHF" may not fully capture the physician's intended level of severity. In your clinical opinion is this patient being managed for: ( ) Chronic diastolic (preserved EF) CHF ( ) Chronic systolic and diastolic CHF ( ) Other explanation of clinical findings (Please Explain) ( ) Unable to determine (Please Define) ( ) Need to Discuss ( ) Not Agree The medical record reflects the following clinical findings, treatment, and risk factors. Clinical Indicators: As above. Treatment: Home meds Lasix, Toprol, Eplerenone continued. Risk Factors: Age diastolic dysfunction, valvular HD, HTN, Query #2/2 Cardiology daily progress not also states CKD. Documenting the stage of CKD will improve data integrity and will help clarify vague terms such as "renal insufficiency" or "chronic renal failure." In your clinical opinion is this patient being managed for: ( ) Chronic kidney disease, stage 3 (moderate) ( ) Other explanation of clinical findings (Please Explain) ( ) Unable to determine (Please Define) ( ) Need to Discuss ( ) Not Agree The medical record reflects the following clinical findings, treatment, and risk factors. Clinical Indicators: As above. Presenting BUN 38, Creatinine 1.90, GFR 33.3 Treatment: Currently Lasix on hold, daily PRP's Risk Factors: Age, HTN, DM, Please clarify and document your clinical opinion in the progress notes and discharge summary. Terms such as "probable", "suspected", "likely", "questionable", "possible", or "still to be ruled out" are acceptable. The stages of CKD according to the [employer] are as follows: Stage I: GFR >90 Stage II: GFR 60-89 Stage III: GFR 30-59 Stage IV: GFR 15-29 Stage V: GFR <15 IF IN AGREEMENT, YOU MUST DOCUMENT ABOVE DIAGNOSTIC STATEMENT IN DAILY PROGRESS NOTES AND DISCHARGE SUMMARY. This document is not part of the patient's record. Thank You, Antonio Tse, RN [phone]
--- NOTE | 2016-08-18 08:16 | Orthopedic Progress Note ---
Orthopedic Progress Note Date of Service Aug 18, 2016. Subjective Post OP Day: 2 Additional Notes: Denies knee pain. Some confusion yesterday Objective calves soft nontender, N/V intact, dressing C/D/I appears confused this morning No distress Date Time Temp Pulse Resp B/P (MAP) Pulse Ox O2 Delivery O2 Flow Rate FiO2 08/18/16 06:55 36.6 85 18 117/72 (87) 93 Room Air 08/18/16 00:15 Room Air 08/17/16 23:05 36.9 90 20 126/60 (82) 92 Room Air 08/17/16 15:40 Room Air 08/17/16 15:26 36.7 80 16 127/87 (100) 94 Room Air 08/17/16 14:55 64 95 Laboratory Results 24 Hours: Test 08/18/16 05:14 Prothromb Time International Ratio 1.9 Prothrombin Time 20.7 SECONDS Assessment & Plan Assessment: Post-op from Right TKR. Some confusion yesterday and today Pain controlled. N/ V intact. Plan: 1.) DVT prophylaxis - TEDS, SCDs, and Coumadin to keep INR between 2 and 3. 2) PT/OT - Left TKR Protocol 3.) Pain control - doing well with current tx 4.) Disposition - Plan to discharge to home with home health once recovered. He is confused still today. Will await cardiology eval today. Plan for discharge tomorrow possibly if confusion subsides. 5: He was seen and examined today by Dr. Casey as well.
[2016-08-18] MEDS: EPLERENONE 25 MG TAB PO SCH (08:27)
[2016-08-18] MEDS: MULTIVITAMIN TAB PO SCH (08:28)
[2016-08-18] MEDS: PANTOprazole SOD 40 MG TAB PO SCH (08:28)
[2016-08-18] MEDS: METOPROLOL SUCC 50MG EXT REL TAB PO SCH (08:28)
[2016-08-18] MEDS: HydrALAZINE 10 MG TAB PO SCH ×2 (08:28→21:37)
[2016-08-18] MEDS: TAMSULOSIN HCL 0.4 MG CAP PO SCH (08:28)
[2016-08-18] MEDS: FEBUXOSTAT 40 MG TAB PO SCH (08:28)
[2016-08-18] MEDS: FERROUS GLUCONATE 324 MG TAB PO SCH ×3 (08:29→17:55)
[2016-08-18] MEDS: DOCUSATE SODIUM 100 MG CAP PO SCH ×2 (08:29→21:37)
[2016-08-18] MEDS: INSULIN HUMAN REGULAR SC SCH ×4 (08:34→21:42)
[2016-08-18 10:51] LABS: BUN/CREATININE RATIO 16.8 (10-20); CREATININE 2.6 mg/dl (0.60-1.40); POTASSIUM 5.1 mmol/L (3.5-5.1)
[2016-08-18] MEDS: SODIUM CHLORIDE 0.9% 1000ML 1,000 ML IV SCH ×2 (12:21→21:36)
--- NOTE | 2016-08-18 14:07 | Cardiology Follow-Up ---
Subjective Subjective Date of Service: Aug 18, 2016. Pt evaluation today including: conversation w/ patient, conversation w/ family , physical exam, chart review, lab review, review of studies, review of inpatient medication list Additional Details: Pt seen and examined with at bedside. Nursing reports continued confusion overnight, somewhat improved when arrived. reports that he seems to be a little better than yesterday. Denies cp, sob, palpitations, lightheadedness or dizziness. Urinated on floor overnight, no urine output this AM though. 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 (3) S/P heart valve repair Status: Chronic Review of Systems Respiratory: No see HPI, No cough, No sputum, No wheezing, No shortness of breath, No dyspnea on exertion, No dyspnea at rest, No hemoptysis, No problem reported Cardiac: No see HPI, No chest pain, No orthopnea, No PND, No edema, No claudication, No palpitations, No problem reported Objective Vital Signs Last Vital Signs Documentation Date Time Temp Pulse Resp B/P (MAP) Pulse Ox O2 Delivery O2 Flow Rate FiO2 08/18/16 08:00 Room Air 08/18/16 06:55 36.6 85 18 117/72 (87) 93 08/16/16 19:30 2.0 Physical Exam: General Appearance: no apparent distress, + pertinent finding (confused) Eyes: bilateral eyes normal inspection, bilateral eyes PERRL, bilateral eyes EOMI ENT: normal ENT inspection, hearing grossly normal, pharynx normal Neck: supple, no adenopathy, thyroid normal, no JVD, no carotid bruits, trachea midline Respiratory/Chest: chest non-tender, lungs clear, normal breath sounds, no respiratory distress, no accessory muscle use Cardiovascular: regular rate, rhythm, no edema, no JVD, + systolic murmur (4/6 mid to late belen, rsb, 2nd ics with radiation to b/l carotids), + gallop/S4 Abdomen: normal bowel sounds, non tender, soft, no organomegaly Extremities: normal inspection, no pedal edema, no calf tenderness Neurologic/Psychiatric: assistant chief train dispatcher II-XII nml as tested, no motor/sensory deficits, alert, + disoriented Skin: normal color, warm/dry, no rash Lymphatic: no adenopathy Assessment and Plan 1. urinary retention patient with scopolamine patch that was placed post-operatively, the likely culprit doubt primary prostate issue but will start flomax for completeness sake now patient not taking in much water since becoming confused yesterday will give 1L IVF and if no urine out will scan bladder and straight cath if necessary, may consider urology eval if issue does not resolve 2. aortic stenosis stable 3. diastolic dysfunction stable, does not examine as volume overloaded cont lasix, eplerenone and toprol 4. HTN stable cont hydralazine 5. afib stable coumadin restarted 6. volume status depleted by numbers today decreased po intake with confusion will give 1L of NSS increased po intake encouraged hold lasix for now
[2016-08-18 14:20] VITALS: BP 102/76; PULSE 65; TEMP 36.9; O2SAT 93
[2016-08-18 15:23] VITALS: BP 127/69; PULSE 67; TEMP 37.3; O2SAT 93
[2016-08-18] MEDS ORDERED: WARFARIN SOD 5 MG TAB PO SCH (16:00)
--- NOTE | 2016-08-18 16:53 | Nephrology Consultation ---
Nephrology Consultation Date of Consultation: Aug 18, 2016. Attending Physician: Musa Light Requesting Physician: Musa Light Reason for Consultation: susan History of Present Illness Patient is a 76 year old male with ckd stage 3 with creatinine of 1.6 to 1.8 with mild proteinuria from advanced age, diabetes and hypertension who I follow in outpatient clinic, last seen in april. Pt underwent elective left total knee replacement on 08/16/16. pt does have cardiac history of a pacemaker and mitral valve repair with ring and tricuspid valve repair with ring and closure of patent foramen ovale followed by Dr. Watson. pt doing well. getting therapy for his knee. pain around 5/10. pt not urinating well. appetite is good. creatinine has worsened up to 2.6 since admission and on iv fluids and tolerating them well. 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 (3) S/P heart valve repair Status: Chronic gout ckd stage 3 with baseline creatinine of 1.6 to 1.8 diabetes hypertension Family History Diabetes mellitus Heart disease Hypertension Kidney disease Social History Smoking Status: Never Smoker Alcohol Use: none, other (used to drink heavily in the past) Drug Use: none Marital Status: Housing Status: lives with significant other Occupation Status: retired Allergies Coded Allergies: Allopurinol (Verified Allergy, Unknown, RASH, 08/16/16) Spironolactone (Unverified Allergy, Unknown, CHEST PAIN, 08/16/16) Medications Current Inpatient Medications Medications (Trade) Dose Ordered Sig/Sabas Route Start Time Stop Time Status Last Admin Dose Admin Miscellaneous Medication (No Nsaids) 1 ea UD N/A 08/16/16 10:30 09/15/16 10:29 Acetaminophen (Tylenol Tab) 1,000 mg Q8H PO 08/16/16 14:00 09/15/16 13:59 08/18/16 13:00 1,000 MG Magnesium Hydroxide (Milk Of Magnesia Susp) 30 ml Q6H PRN PO 08/16/16 10:30 09/15/16 10:29 Bisacodyl (Dulcolax Supp) 10 mg DAILY PRN PA 08/16/16 10:30 09/15/16 10:29 Senna (Senokot Tab) 17.2 mg HS PO 08/16/16 21:00 09/15/16 20:59 08/17/16 21:01 17.2 MG Docusate Sodium (coLACE CAP) 100 mg BID PO 08/16/16 21:00 09/15/16 20:59 08/18/16 08:29 100 MG Al Hydrox/Mg Hydrox/Simethicone (Maalox Max Susp) 15 ml Q4H PRN PO 08/16/16 10:30 09/15/16 10:29 Zolpidem Tartrate (Ambien Tab) 5 mg HSZ PRN PO 08/16/16 10:30 09/15/16 10:29 Multivitamins (Multivitamin Tab) 1 tab QAM PO 08/17/16 09:00 09/16/16 08:59 08/18/16 08:28 1 TAB Ondansetron HCl (Zofran Inj) 4 mg Q6H PRN IV 08/16/16 10:30 09/15/16 10:29 Metoclopramide HCl (Reglan Inj) 10 mg Q6H PRN IV 08/16/16 10:30 09/15/16 10:29 Ferrous Gluconate (Ferrous Gluconate Tab) 324 mg TIDM PO 08/16/16 12:30 09/15/16 12:29 08/18/16 12:21 324 MG Pantoprazole Sodium (Protonix Tab) 40 mg QAM PO 08/17/16 09:00 09/16/16 08:59 08/18/16 08:28 40 MG Silver Sulfadiazine (Silvadene 1% Crm 50GM Jar) 1 appln BID PRN EXT 08/16/16 10:30 09/15/16 10:29 Furosemide (Lasix Tab) 40 mg QAM PO 08/17/16 09:00 09/16/16 08:59 Future Hold 08/17/16 08:30 40 MG Hydralazine HCl (Apresoline Tab) 20 mg BID PO 08/16/16 21:00 09/15/16 20:59 08/18/16 08:28 20 MG Metoprolol Succinate (Toprol Xl Tab) 50 mg QAM PO 08/17/16 09:00 09/16/16 08:59 08/18/16 08:28 50 MG Febuxostat (Uloric) 40 mg QAM PO 08/17/16 09:00 09/16/16 08:59 08/18/16 08:28 40 MG Insulin Human Regular (novoLIN-R) SLIDING SCALE ACHS SC 08/16/16 12:00 09/15/16 11:59 08/18/16 12:58 1 UNITS Glucose (Glucose 40% Gel) 15-30 GRAMS 15 GRAMS... UD PRN PO 08/16/16 10:45 09/15/16 10:44 Glucose (Glucose Chew Tab) 4-8 Tablets 4 Tabl... UD PRN PO 08/16/16 10:45 09/15/16 10:44 Dextrose (Dextrose 50% 50ML Syringe) 25-50ML OF 50% DW IV FOR... UD PRN IV 08/16/16 10:45 09/15/16 10:44 Glucagon (Glucagon Inj) 1 mg UD PRN SQ 08/16/16 10:45 09/15/16 10:44 Hydromorphone HCl (Dilaudid Inj) 0.5 mg Q1H PRN IV 08/16/16 10:45 08/30/16 10:44 Epleronone (Eplerenone) 25 mg QAM PO 08/17/16 09:00 09/16/16 08:59 08/18/16 08:27 25 MG Tamsulosin HCl (Flomax Cap) 0.4 mg QAM PO 08/18/16 09:00 09/15/16 10:29 08/18/16 08:28 0.4 MG Warfarin Sodium (Coumadin Tab) 5 mg DAILY@16 PO 08/18/16 16:00 09/17/16 15:59 08/18/16 15:53 5 MG Sodium Chloride 1,000 ml @ 100 mls/hr Q10H IV 08/18/16 11:30 09/17/16 11:29 08/18/16 12:21 100 MLS/HR Home Meds and Scripts Medications Dose Route/Sig Max Daily Dose Days Date Category Dose Instructions Tramadol HCl 50 Mg Tab 50-100 Mg PO Q6H PRN 30 08/16/16 Rx Take as needed for Pain. Sb Non-Aspirin Extra Stre (Acetaminophen) 500 Mg Tab 1,000 Mg PO Q8H 30 08/16/16 Rx Take 3 times per day to lessen pain. Ferrous Gluconate 324 Mg Tab 324 Mg PO BIDM 08/16/16 Rx Take to restore blood count. [Lidocaine Cr] 1 Dose TOP PRN 07/29/16 Reported [Oxycodone] 1 Tab PO PRN 07/29/16 Reported [place] 5MG/325MG (Acetaminophen/Hydrocodone Bitart) Tab 1 Tablet PO PRN PRN 07/29/16 Reported PRN PAIN Apresoline (Hydralazine Hcl) 10 Mg Tab 20 Mg PO BID 11/19/15 Reported Uloric (Febuxostat) 40 Mg Tab 40 Mg PO QAM 90 11/15/15 Reported Eplerenone 25 Mg Tab 25 Mg PO QAM 11/15/15 Reported Jantoven (Warfarin Sodium) 2.5 Mg Tab 2.5 Mg PO WK 09/07/15 Reported MONDAY pm Toprol-Xl (Metoprolol Succinate) 50 Mg Tabcr 50 Mg PO QAM 09/07/15 Reported Lantus (Insulin Glargine) Vial 28 Units SC QPM 09/07/15 Reported Lasix (Furosemide) 40 Mg Tab 40 Mg PO QAM 09/07/15 Reported Coumadin * (Warfarin Sodium) 5 Mg Tab 1 Tab PO 6XWK 11/04/10 Reported PM EXCEPT MONDAYS Dosage titrated based on INR Review of Systems Constitutional: No fatigue Eyes: No diplopia ENT: No trouble swallowing Respiratory: No shortness of breath Cardiac: No chest pain Abdomen: No nausea, No vomiting Musculoskeletal: + problem reported (pain in knee with recent surgery) Male : + problem reported (urination decreased) all other review of systems otherwise negative Physical Exam Date Time Temp Pulse Resp B/P (MAP) Pulse Ox O2 Delivery O2 Flow Rate FiO2 08/18/16 15:23 37.3 67 18 127/69 (88) 93 Room Air 08/18/16 14:20 36.9 65 19 102/76 (85) 93 Room Air 08/18/16 08:00 Room Air 08/18/16 06:55 36.6 85 18 117/72 (87) 93 Room Air 08/18/16 00:15 Room Air 08/17/16 23:05 36.9 90 20 126/60 (82) 92 Room Air 24-Hour Column 08/19/16 08:00 Intake Total 752 ml Output Total 400 ml Balance 352 ml General Appearance: no apparent distress Eyes: + pertinent finding (no scleral icterus) ENT: normal ENT inspection Neck: supple Respiratory/Chest: lungs clear, normal breath sounds, no respiratory distress Cardiovascular: regular rate, rhythm Abdomen: normal bowel sounds, non tender, soft Extremities: + pertinent finding (left knee wrapped and iced) Neurologic/Psych: no motor/sensory deficits Skin: normal color, no jaundice Diagnostics Last 24 Hours Test 08/17/16 17:24 08/17/16 20:48 08/18/16 05:14 08/18/16 08:07 Bedside Glucose 177 mg/dl 186 mg/dl 175 mg/dl Prothrombin Time 20.7 SECONDS Prothromb Time International Ratio 1.9 Sodium Level 132 mmol/L Potassium Level 5.1 mmol/L Chloride Level 98 mmol/L Carbon Dioxide Level 25 mmol/L Anion Gap 9.0 mmol/L Blood Urea Nitrogen 44 mg/dl Creatinine 2.60 mg/dl Est Creatinine Clear Calc Drug Dose 26.5 ml/min Estimated GFR () 26.4 Estimated GFR (Non- 22.8 BUN/Creatinine Ratio 16.8 Random Glucose 169 mg/dl Calcium Level 9.0 mg/dl Test 08/18/16 12:41 Bedside Glucose 160 mg/dl Assessment & Plan susan on ckd stage 3 with creatinine up to 2.6 with previous baseline of 1.6 to 1.8. appears volume depleted to me and should start to improve with continued iv fluids. no nsaids and no contrast. appetite is good. will see if creatinine starts to improve tomorrow. if continues to worsen, will obtain a renal us. pt in good spirits and with in the room. answered questions appropriately. continue iv fluids and tolerating them well with lungs cta.
[2016-08-18 21:29] VITALS: BP 115/68; PULSE 60
[2016-08-18] MEDS: SENNA 8.6 MG TAB PO SCH (21:37)
[2016-08-18 22:55] VITALS: BP 124/63; PULSE 57; TEMP 37; O2SAT 98
[2016-08-19] MEDS: ACETAMINOPHEN 500 MG TAB PO SCH ×3 (05:33→21:38)
[2016-08-19 06:06] LABS: INR 2.7 (0.9-1.1); PROTHROMBIN TIME (PATIENT) 30.2 SECONDS (9.0-12.0)
[2016-08-19 06:35] LABS: BUN/CREATININE RATIO 20.7 (10-20); CALCIUM 8.9 mg/dl (8.5-10.1); CREATININE 2.3 mg/dl (0.60-1.40); POTASSIUM 5.4 mmol/L (3.5-5.1)
--- NOTE | 2016-08-19 06:52 | Clinical Documentation Query ---
CLINICAL DOCUMENTATION QUERY Dr. GABRIEL, In your clinical opinion is this patient being managed for: ( x ) Metabolic encephalopathy in the setting of NICK ( ) Other explanation of clinical findings (Please Explain) ( ) Unable to determine (Please Define) ( ) Need to Discuss ( ) Not Agree The medical record reflects the following clinical findings, treatment, and risk factors. Clinical Indicators: 76 yo male presenting with L knee DJD for a L TKR. Nursing progress note on 08/18 indicates pt developed confusion and hallucinations on the evening of 08/17. Noted rise in Cr from baseline of 1.6-1.8 to 2.6. Treatment: IV fluids, nephrology consult, no NSAIDs, hold lasix Risk Factors: acute renal failure Please clarify and document your clinical opinion in the progress notes and discharge summary. Terms such as "probable", "suspected", "likely", "questionable", "possible", or "still to be ruled out" are acceptable. IF IN AGREEMENT, YOU MUST DOCUMENT ABOVE DIAGNOSTIC STATEMENT IN DAILY PROGRESS NOTES AND DISCHARGE SUMMARY. This document is not part of the patient's record. Thank You, Kady Montalvo, RN [phone]
[2016-08-19 06:59] VITALS: BP 143/76; PULSE 70; TEMP 36.9; O2SAT 96
[2016-08-19] MEDS: SODIUM CHLORIDE 0.9% 1000ML 1,000 ML IV SCH ×2 (07:23→17:12)
[2016-08-19] MEDS: PANTOprazole SOD 40 MG TAB PO SCH (08:18)
[2016-08-19] MEDS: DOCUSATE SODIUM 100 MG CAP PO SCH ×2 (08:18→20:41)
[2016-08-19] MEDS: FERROUS GLUCONATE 324 MG TAB PO SCH ×3 (08:18→17:39)
[2016-08-19] MEDS: FEBUXOSTAT 40 MG TAB PO SCH (08:19)
[2016-08-19] MEDS: MULTIVITAMIN TAB PO SCH (08:19)
[2016-08-19] MEDS: TAMSULOSIN HCL 0.4 MG CAP PO SCH (08:19)
[2016-08-19] MEDS: METOPROLOL SUCC 50MG EXT REL TAB PO SCH (08:19)
[2016-08-19] MEDS: HydrALAZINE 10 MG TAB PO SCH ×2 (08:19→20:42)
[2016-08-19] MEDS: INSULIN HUMAN REGULAR SC SCH ×4 (08:23→20:50)
--- NOTE | 2016-08-19 08:56 | Nephrology Progress Note ---
Nephrology Progress Note Date of Service: Aug 19, 2016. Subjective 76 yo male seen for susan on ckd s/p elective knee replacement. creatinine improving and down to 2.3. no complaints other than pain in knee secondary to surgery. currently wearing elizabet hose on both legs to try to prevent blood clots and uncomfortable on surgical knee. no sob or chest pain. Objective Date Time Temp Pulse Resp B/P (MAP) Pulse Ox O2 Delivery O2 Flow Rate FiO2 08/19/16 07:20 Room Air 08/19/16 06:59 36.9 70 18 143/76 (98) 96 Room Air 08/18/16 22:55 37.0 57 16 124/63 (83) 98 Room Air 08/18/16 21:29 60 115/68 (84) 08/18/16 19:15 Room Air 08/18/16 15:23 37.3 67 18 127/69 (88) 93 Room Air 08/18/16 14:20 36.9 65 19 102/76 (85) 93 Room Air Physical Exam: General-aaox3 Eyes-no scleral icterus ENT-mmm Neck-supple Lungs-cta Heart-rrr Abdomen-left knee swollen Extremities-+1 edema left>right Neuro-nonfocal, limited movement of left knee Current Inpatient Medications Medications (Trade) Dose Ordered Sig/Sabas Route Start Time Stop Time Status Last Admin Dose Admin Miscellaneous Medication (No Nsaids) 1 ea UD N/A 08/16/16 10:30 09/15/16 10:29 Acetaminophen (Tylenol Tab) 1,000 mg Q8H PO 08/16/16 14:00 09/15/16 13:59 08/19/16 05:33 1,000 MG Magnesium Hydroxide (Milk Of Magnesia Susp) 30 ml Q6H PRN PO 08/16/16 10:30 09/15/16 10:29 Bisacodyl (Dulcolax Supp) 10 mg DAILY PRN HI 08/16/16 10:30 09/15/16 10:29 Senna (Senokot Tab) 17.2 mg HS PO 08/16/16 21:00 09/15/16 20:59 08/18/16 21:37 17.2 MG Docusate Sodium (coLACE CAP) 100 mg BID PO 08/16/16 21:00 7/27/17 20:59 08/19/16 08:18 100 MG Al Hydrox/Mg Hydrox/Simethicone (Maalox Max Susp) 15 ml Q4H PRN PO 08/16/16 10:30 09/15/16 10:29 Zolpidem Tartrate (Ambien Tab) 5 mg HSZ PRN PO 08/16/16 10:30 09/15/16 10:29 Multivitamins (Multivitamin Tab) 1 tab QAM PO 08/17/16 09:00 09/16/16 08:59 08/19/16 08:19 1 TAB Ondansetron HCl (Zofran Inj) 4 mg Q6H PRN IV 08/16/16 10:30 09/15/16 10:29 Metoclopramide HCl (Reglan Inj) 10 mg Q6H PRN IV 08/16/16 10:30 09/15/16 10:29 Ferrous Gluconate (Ferrous Gluconate Tab) 324 mg TIDM PO 08/16/16 12:30 09/15/16 12:29 08/19/16 08:18 324 MG Pantoprazole Sodium (Protonix Tab) 40 mg QAM PO 08/17/16 09:00 09/16/16 08:59 08/19/16 08:18 40 MG Silver Sulfadiazine (Silvadene 1% Crm 50GM Jar) 1 appln BID PRN EXT 08/16/16 10:30 09/15/16 10:29 Furosemide (Lasix Tab) 40 mg QAM PO 08/17/16 09:00 09/16/16 08:59 Future Hold 08/17/16 08:30 40 MG Hydralazine HCl (Apresoline Tab) 20 mg BID PO 08/16/16 21:00 09/15/16 20:59 08/19/16 08:19 20 MG Metoprolol Succinate (Toprol Xl Tab) 50 mg QAM PO 08/17/16 09:00 09/16/16 08:59 08/19/16 08:19 50 MG Febuxostat (Uloric) 40 mg QAM PO 08/17/16 09:00 09/16/16 08:59 08/19/16 08:19 40 MG Insulin Human Regular (novoLIN-R) SLIDING SCALE ACHS SC 08/16/16 12:00 09/15/16 11:59 08/19/16 08:23 2 UNITS Glucose (Glucose 40% Gel) 15-30 GRAMS 15 GRAMS... UD PRN PO 08/16/16 10:45 09/15/16 10:44 Glucose (Glucose Chew Tab) 4-8 Tablets 4 Tabl... UD PRN PO 08/16/16 10:45 09/15/16 10:44 Dextrose (Dextrose 50% 50ML Syringe) 25-50ML OF 50% DW IV FOR... UD PRN IV 08/16/16 10:45 09/15/16 10:44 Glucagon (Glucagon Inj) 1 mg UD PRN SQ 08/16/16 10:45 09/15/16 10:44 Hydromorphone HCl (Dilaudid Inj) 0.5 mg Q1H PRN IV 08/16/16 10:45 08/30/16 10:44 Epleronone (Eplerenone) 25 mg QAM PO 08/17/16 09:00 09/16/16 08:59 Future Hold 08/18/16 08:27 25 MG Tamsulosin HCl (Flomax Cap) 0.4 mg QAM PO 08/18/16 09:00 09/15/16 10:29 08/19/16 08:19 0.4 MG Warfarin Sodium (Coumadin Tab) 5 mg DAILY@16 PO 08/18/16 16:00 09/17/16 15:59 08/18/16 15:53 5 MG Sodium Chloride 1,000 ml @ 100 mls/hr Q10H IV 08/18/16 11:30 09/17/16 11:29 08/19/16 07:23 100 MLS/HR Last 24 Hours Test 08/18/16 12:41 08/18/16 16:53 08/18/16 21:35 08/19/16 04:57 Bedside Glucose 160 mg/dl 187 mg/dl 139 mg/dl Prothrombin Time 30.2 SECONDS Prothromb Time International Ratio 2.7 Sodium Level 133 mmol/L Potassium Level 5.4 mmol/L Chloride Level 99 mmol/L Carbon Dioxide Level 24 mmol/L Anion Gap 10.0 mmol/L Blood Urea Nitrogen 48 mg/dl Creatinine 2.30 mg/dl Est Creatinine Clear Calc Drug Dose 29.9 ml/min Estimated GFR () 30.6 Estimated GFR (Non- 26.4 BUN/Creatinine Ratio 20.7 Random Glucose 131 mg/dl Calcium Level 8.9 mg/dl Test 08/19/16 08:01 Bedside Glucose 168 mg/dl Assessment & Plan susan on ckd stage 3 with creatinine up to 2.6 with previous baseline of 1.6 to 1.8. improving and down to 2.3. hopefully will be able to stop the iv fluids tomorrow. hyperkalemia-k trending up with the susan and on a renal diet. should improve as creatinine improves. monitor for now.
[2016-08-19] MEDS: HYDROmorphone INJ 0.5 MG/0.5 ML SYR IV PRN (12:17)
--- NOTE | 2016-08-19 13:29 | Orthopedic Progress Note ---
Orthopedic Progress Note Date of Service Aug 19, 2016. Objective calves soft nontender, N/V intact, incision C/D/I Date Time Temp Pulse Resp B/P (MAP) Pulse Ox O2 Delivery O2 Flow Rate FiO2 08/19/16 07:20 Room Air 08/19/16 06:59 36.9 70 18 143/76 (98) 96 Room Air 08/18/16 22:55 37.0 57 16 124/63 (83) 98 Room Air 08/18/16 21:29 60 115/68 (84) 08/18/16 19:15 Room Air 08/18/16 15:23 37.3 67 18 127/69 (88) 93 Room Air 08/18/16 14:20 36.9 65 19 102/76 (85) 93 Room Air Laboratory Results 24 Hours: Test 08/19/16 04:57 Prothromb Time International Ratio 2.7 Prothrombin Time 30.2 SECONDS Assessment & Plan Assessment: Post-op from Right TKR. Looks better today Pain controlled. N/V intact. Plan: Plan: 1.) DVT prophylaxis - TEDS, SCDs, and Coumadin to keep INR between 2 and 3. 2) PT/OT - Left TKR Protocol 3.) Pain control - doing well with current tx 4.) Disposition - Plan to discharge to SNF if he is unable to get up from a seated position. Nephrology wants fluids for one more day. Discharge Planning DVT Prophylaxis: Coumadin Discharge Planning Notes:
[2016-08-19] MEDS ORDERED: WARFARIN SOD 5 MG TAB PO SCH (15:15)
[2016-08-19 15:18] VITALS: BP 114/65; PULSE 59; TEMP 36.8; O2SAT 96
--- NOTE | 2016-08-19 15:46 | Cardiology Follow-Up ---
Subjective Subjective Date of Service: Aug 19, 2016. Pt evaluation today including: conversation w/ patient, conversation w/ family , physical exam, chart review, lab review, review of studies, review of inpatient medication list Additional Details: Pt seen and examined with family in room, states that he feels well. Knee sore after PT today. Confusion all but resolved. Denies cp, sob, palpitations, lightheadedness or dizziness. 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 (3) S/P heart valve repair Status: Chronic Review of Systems Constitutional: No fatigue Eyes: No diplopia Respiratory: No shortness of breath Cardiac: No chest pain Musculoskeletal: + problem reported (pain in knee with recent surgery) Male : + problem reported (urination decreased) Objective Vital Signs Last Vital Signs Documentation Date Time Temp Pulse Resp B/P (MAP) Pulse Ox O2 Delivery O2 Flow Rate FiO2 08/19/16 15:18 36.8 59 16 114/65 (81) 96 Room Air 08/16/16 19:30 2.0 Physical Exam: General Appearance: WD/WN, no apparent distress Eyes: bilateral eyes normal inspection, bilateral eyes PERRL, bilateral eyes EOMI ENT: normal ENT inspection, hearing grossly normal, pharynx normal Neck: supple, no adenopathy, thyroid normal, no JVD, no carotid bruits, trachea midline Respiratory/Chest: chest non-tender, lungs clear, normal breath sounds, no respiratory distress, no accessory muscle use Cardiovascular: regular rate, rhythm, no edema, no JVD, + systolic murmur (4/6 mid to late belen, rsb, 2nd ics with radiation to b/l carotids), + gallop/S4 Abdomen: normal bowel sounds, non tender, soft, no organomegaly Extremities: normal inspection, no pedal edema, no calf tenderness Neurologic/Psychiatric: tactical/mobile watch officer II-XII nml as tested, no motor/sensory deficits, alert, normal mood/affect, oriented x 3 Skin: normal color, warm/dry, no rash Lymphatic: no adenopathy Assessment and Plan 1. urinary retention resolved 2. aortic stenosis stable 3. diastolic dysfunction stable, does not examine as volume overloaded cont lasix, eplerenone and toprol 4. HTN stable cont hydralazine 5. afib stable coumadin restarted 6. volume status improving likely secondary to decreased po intake with confusion diuretics held would restart all outpatient meds in AM and ok to d/c to home at that point
[2016-08-19 16:46] VITALS: O2SAT 96
[2016-08-19] MEDS: SENNA 8.6 MG TAB PO SCH (20:42)
[2016-08-19 20:43] VITALS: BP 132/67; PULSE 66
[2016-08-19 23:16] VITALS: BP 132/70; PULSE 68; TEMP 36.8; O2SAT 96
[2016-08-20] MEDS: SODIUM CHLORIDE 0.9% 1000ML 1,000 ML IV SCH (03:02)
[2016-08-20] MEDS: ACETAMINOPHEN 500 MG TAB PO SCH (06:00)
[2016-08-20] MEDS: HYDROmorphone INJ 0.5 MG/0.5 ML SYR IV PRN (06:14)
[2016-08-20 06:43] LABS: PROTHROMBIN TIME (PATIENT) 42.6 SECONDS (9.0-12.0)
[2016-08-20 06:57] LABS: INR 3.8 (0.9-1.1)
[2016-08-20 07:15] VITALS: BP 150/70; PULSE 69; TEMP 36.8; O2SAT 95
[2016-08-20] MEDS: FERROUS GLUCONATE 324 MG TAB PO SCH (08:20)
[2016-08-20] MEDS: HydrALAZINE 10 MG TAB PO SCH (08:21)
[2016-08-20] MEDS: PANTOprazole SOD 40 MG TAB PO SCH (08:22)
[2016-08-20] MEDS: TAMSULOSIN HCL 0.4 MG CAP PO SCH (08:22)
[2016-08-20] MEDS: MULTIVITAMIN TAB PO SCH (08:22)
[2016-08-20] MEDS: DOCUSATE SODIUM 100 MG CAP PO SCH (08:22)
[2016-08-20] MEDS: METOPROLOL SUCC 50MG EXT REL TAB PO SCH (08:23)
[2016-08-20] MEDS: FEBUXOSTAT 40 MG TAB PO SCH (08:28)
[2016-08-20] MEDS: INSULIN HUMAN REGULAR SC SCH (08:28)
[2016-08-20] MEDS ORDERED: TRAMADOL HCL 50 MG TAB PO PRN (08:45)
--- NOTE | 2016-08-20 08:48 | Orthopedic Progress Note ---
Orthopedic Progress Note Date of Service Aug 20, 2016. Subjective Post OP Day: 4 Reports: feeling well Additional Notes: Looks much better today. Still having trouble getting up, but improving. Requesting d/c to home. Objective calves soft nontender, N/V intact, dressing C/D/I Date Time Temp Pulse Resp B/P (MAP) Pulse Ox O2 Delivery O2 Flow Rate FiO2 08/20/16 07:57 Room Air 08/20/16 07:15 36.8 69 18 150/70 (96) 95 Room Air 08/19/16 23:16 36.8 68 16 132/70 (90) 96 Room Air 08/19/16 23:15 Room Air 08/19/16 20:43 66 132/67 (88) 08/19/16 16:46 96 Room Air 08/19/16 15:18 36.8 59 16 114/65 (81) 96 Room Air Laboratory Results 24 Hours: Test 08/20/16 05:08 Prothromb Time International Ratio 3.8 Prothrombin Time 42.6 SECONDS Assessment & Plan Assessment: Post-op from Right TKR. Looks better today Pain controlled. N/V intact. Plan: Plan: 1.) DVT prophylaxis - TEDS, SCDs, and Coumadin to keep INR between 2 and 3. 2) PT/OT - Left TKR Protocol 3.) Pain control - Tramadol and Tylenol 4.) Disposition - Plan to discharge to home or to SNF today. Will discuss with family Discharge Planning DVT Prophylaxis: Coumadin Discharge Planning Notes:
[2016-08-20 11:45] VITALS: BP 150/70; PULSE 69; TEMP 36.8; O2SAT 95
--- NOTE | 2016-08-27 11:07 | Discharge Summary ---
Orthopedic Discharge Summary Admission Date/Reason Aug 16, 2016 at 06:35 Left Knee Degenerative Joint Disease. Discharge Date/Disposition Aug 20, 2016 [facility] facility Diagnosis Principal Diagnosis: LEFT KNEE DJD Secondary Diagnoses/Problems: 1. Valvular heart disease, status post valve replacement, on Coumadin. 2. Pacemaker placement. 3. Diabetes. Hemoglobin A1c is 6.3. 4. Hypertension. 5. Underlying chronic kidney disease. 6. Low back pain Procedure(s) Performed LEFT TKA Consultations DR KLEIN CARDIOLOGY DR SIFUENTES NEPHROLOGY Medication Reconciliation New Medications: Acetaminophen (Sb Non-Aspirin Extra Stre) 500 Mg Tab 1000 MG PO Q8H for 30 Days, #180 TAB Take 3 times per day to lessen pain. Ferrous Gluconate (Ferrous Gluconate) 324 Mg Tab 324 MG PO BIDM for 30 Days, #60 TAB Take to restore blood count. Tramadol HCl (Tramadol HCl) 50 Mg Tab 50-100 MG PO Q6H PRN for Pain for 30 Days, #60 TAB Take as needed for Pain. Continued Medications: Eplerenone (Eplerenone) 25 Mg Tab 25 MG PO QAM Febuxostat (Uloric) 40 Mg Tab 40 MG PO QAM for 90 Days, #90 TAB 3 Refills Furosemide (Lasix) 40 Mg Tab 40 MG PO QAM, TAB Hydralazine Hcl (Apresoline) 10 Mg Tab 20 MG PO BID for Hypertension, TAB Insulin Glargine (Lantus) Vial 28 UNITS SC QPM, VIAL Metoprolol Succ (Toprol Xl) (Toprol-Xl) 50 Mg Tabcr 50 MG PO QAM, TAB Warfarin Sod (Coumadin *) 5 Mg Tab 1 TAB PO 6XWK, 0 Refills PM EXCEPT MONDAYS Dosage titrated based on INR Warfarin Sod (Jantoven) 2.5 Mg Tab 2.5 MG PO WK MONDAY pm [Lidocaine Cr] () 1 DOSE TOP PRN [Oxycodone] () 1 TAB PO PRN Discontinued Medications: Hydrocodone/Acetaminophen 5MG/325MG ([place] 5MG/325MG) Tab 1 TABLET PO prn PRN for Pain, TAB PRN PAIN Admission Physical Exam As per Admitting History & Physical. Hospital Course PAMELA WAS ADMITTED ON 08/16/16 AND UNDERWENT TKA. HE TOLERATED THE PROCEDURE WELL. THERE WERE NO COMPLICATIONS. HE WAS TRANSFERRED TO THE PACU POST OP AND LATER TO THE ORTHOPEDIC FLOOR FOR FURTHER CARE. HE WAS GIVEN ANCEF FOR ANTIBIOTIC PROPHYLAXIS. JEWEL'S, SCD'S, AND COUMADIN FOR DVT PROPHYLAXIS. HIS INR WAS MONITORED DAILY AND COUMADIN DOSED ACCORDINGLY. HE DID HAVE SOME POST OP CONFUSION AND NICK. HIS PAIN MEDICATION WAS ADJUSTED AND AND THE CONFUSION IMPROVED. HE WAS GIVEN IV FLUIDS AND HIS RENAL FUNCTION DID IMPROVE. HE WAS FOLLOWED BY CARDIOLOGY AND NEPHROLOGY SERVICES DURING HIS HOSPITAL STAY WELL. HIS H/H AND VITAL SIGNS WERE MONITORED DURING HIS HOSPITAL STAY. HE DID NOT REQUIRE ANY BLOOD TRANSFUSION. BY POD #4 HE WAS TOLERATING A GENERAL DIET, PAIN WAS CONTROLLED WITH ORAL PAIN MEDICINES, HE WAS PARTICIPATING IN PT, AND HAD NO S/S OF DVT. HIS RENAL FUNCTION AND CONFUSION IMPROVED. ON POD #4 HE WAS TRANSFERRED TO A PENITENTIARY FACILITY. HE WAS GIVEN DISCHARGE INSTRUCTIONS INCLUDING NEW PRESCRIPTIONS ABOVE. CONTINUE COUMADIN AND TEDS FOR DVT PROPHYLAXIS. CONTINUE PT, WBAT. FOLLOW UP IN 10-12 DAYS OR SOONER IF THERE ARE PROBLEMS OR CONCERNS. Discharge Instructions Please refer to the electronic Patient Visit Report (Discharge Instructions) for additional information.
== END 2016-08-20 12:15 | DRG 470 ==
LOC: C.ACU 06:24 → C.3E 06:35 → ENRESERV 10:55
PROVIDERS: ADMIT Orthopaedic Surgery Sports Medicine; ATTEND Orthopaedic Surgery Sports Medicine
PROC: 0SRD0J9 Replacement of Left Knee Joint with Synthetic Substitute, Cemented, Open Approach (ICD-10-PCS; principal; 2016-08-16 08:50)
DX: M17.12 Unilateral primary osteoarthritis, left knee (principal); N17.9 Acute kidney failure, unspecified; N18.3 Chronic kidney disease, stage 3 (moderate); E11.9 Type 2 diabetes mellitus without complications; R33.9 Retention of urine, unspecified; I35.0 Nonrheumatic aortic (valve) stenosis; E78.5 Hyperlipidemia, unspecified; E87.5 Hyperkalemia; Z95.0 Presence of cardiac pacemaker; Z79.01 Long term (current) use of anticoagulants; I12.9 Hypertensive chronic kidney disease with stage 1 through stage 4 chronic kidney disease, or unspecified chronic kidney disease

== ENCOUNTER → 2016-08-22 | Outpatient (CLI) | payer OTHER ==
[~2016-08-22] MED LIST changes: +ACET-24 PO; -ACETAMINOPHEN 500 MG TAB PO SCH; -BUPIVACAINE LIPOSOME 266 MG, BUPIVACAINE/EPINEPHRINE INJ 50 ML, SODIUM CHLORIDE 0.9% PF... INFIL SCH; -CEFAZOLIN 2000 MG/60 ML D5W 60 ML IV SCH; -FAMOTIDINE 20 MG TAB PO SCH; +FRRG PO; -GABAPENTIN 300 MG CAP PO SCH; -HYDR-5688 PO; -LACTATED RINGER'S 1000ML 1,000 ML IV SCH; -METOCLOPRAMIDE HCL 10 MG TAB PO SCH; -SCOPOLAMINE 1.5 MG TDSY TD SCH; -TRANEXAMIC ACID INJ 1,000 MG in SODIUM CHLORIDE 0.9% 100ML 100 ML IV SCH; +ULT50X PO
[2016-08-22 13:28] LABS: PROTHROMBIN TIME (PATIENT) 43.3 SECONDS (9.0-12.0)
[2016-08-22 13:35] LABS: INR 3.8 (0.9-1.1)
== END ==
LOC: C.LABCC 12:52
PROVIDERS: ATTEND Internal Medicine
DX: Z51.81 Encounter for therapeutic drug level monitoring (principal); Z79.01 Long term (current) use of anticoagulants

== ENCOUNTER → 2016-08-25 | Outpatient (CLI) | payer OTHER ==
[2016-08-25 09:47] LABS: INR 2.8 (0.9-1.1); PROTHROMBIN TIME (PATIENT) 31.3 SECONDS (9.0-12.0)
== END | disposition home or self-care (01) ==
LOC: C.LABCC 09:14
PROVIDERS: ATTEND Internal Medicine
DX: Z79.01 Long term (current) use of anticoagulants (principal); Z86.718 Personal history of other venous thrombosis and embolism

== ENCOUNTER → 2016-08-29 | Outpatient (CLI) | payer OTHER ==
[2016-08-29 16:58] LABS: INR 1.5 (0.9-1.1); PROTHROMBIN TIME (PATIENT) 16.7 SECONDS (9.0-12.0)
== END ==
LOC: C.LABBC 13:32
PROVIDERS: ATTEND Orthopaedic Surgery Sports Medicine
DX: Z47.1 Aftercare following joint replacement surgery (principal); Z96.659 Presence of unspecified artificial knee joint

== ENCOUNTER → 2017-07-10 | Day surgery (SDC) | payer OTHER ==
[2017-06-15 13:31] VITALS: Ht 172.7 cm; Wt 100.0 kg
[~2017-07-10] VITALS: Ht 172.7 cm; Wt 100.0 kg
[~2017-07-10] MED LIST changes: -ACET-24 PO; +ACETAMINOPHEN 325 MG TAB PO PRN; +AMVISC PLUS 0.8ML SYRINGE INT OCU ONE; +APR25 PO; +ATROPINE SULFATE 0.1 MG/ML 5ML SYR IV PRN; +BRIMONIDINE TART 0.2% OP SOLN PER DROP CHARGE ONE; +BRIMONIDINE TARTRATE 0.2% 5ML ONE; +BSS FLUSH ONE; -CMD5 PO; +ENDOCOAT 0.85ML SYRINGE INT OCU ONE; +EpHEDrine SULFATE INJ 50 MG/ML AMP IV PRN; +EpINEphrine INJ 1MG/ML AMP 1 MG/ML AMP ONE; -FRRG PO; -HYDR-4715 PO; +LACTATED RINGER'S 1000ML 500 ML IV SCH; +LIDOCAINE 4% OP SOLN DROP CHARGE ONE; +LIDOCAINE 4% OP SOLN DROP CHARGE OPL SCH; +LIDOCAINE HCL 1% MPF 2 ML VIAL ONE; -LIDOCAINE TOP; -METO50TA7 PO; +METO50TA8 PO; +MIDAZOLAM HCL 1 MG/ML 2ML VIAL ONE; +MOXIFLOXACIN OPH SOLN PER DROP CHARGE ONE; -OXYCODONE PO; +POVIDONE-IODINE OP SOLN 30 ML BTL ONE; +PROPARACAINE 0.5% OP SOLN PER DROP CHARGE OPL SCH; +TOBRAMYCIN/DEXAMETHASONE OPH OINT PER APPLN CHARGE ONE; -ULT50X PO; -WARF2.5T8 PO; +WARF5TAB7 PO
[2017-07-10] MEDS: PHENYLEPHRINE HCL 2.5% OP SOLN PER DROP CHARGE OPL SCH ×2 (06:34→06:38)
[2017-07-10] MEDS: TROPICAMIDE 1% OP SOLN PER DROP CHARGE OPL SCH ×2 (06:34→06:40)
[2017-07-10] MEDS: CYCLOPENTOLATE HCL 1% OP SOLN PER DROP CHARGE OPL SCH ×2 (06:35→06:41)
[2017-07-10] MEDS: KETOROLAC 0.5% OP SOLN PER DROP CHARGE OPL SCH ×2 (06:36→06:42)
[2017-07-10] MEDS: MOXIFLOXACIN OPH SOLN PER DROP CHARGE OPL SCH ×2 (06:37→06:44)
--- NOTE | 2017-07-10 07:28 | [facility] Operative Report ---
Operative Report Operative Date July 10, 2017. Pre-Operative Diagnosis Cataract Left Eye Post-Operative Diagnosis Same Procedure(s) Performed Left Cataract Phacoemulsification With Intraocular Lens Implant Surgeon Dr. Joseph Oncology Physician Assistant Surgeon(s) None Estimated Blood Loss 0ML Findings cataract left eye Fluids see anesthesia record Specimens None Drains None Anesthesia Type MAC Complication(s) none Disposition no Recovery Room / PACU Indications decreased vision left eye Description of Procedure After informed consent was obtained in the holding area the patient was wheeled back to the operating room where cardiac monitoring leads and oxygen by nasal cannula was administered by Anesthesia. Gentle IV sedation was given, and the patient's left eye was prepped and draped in usual sterile fashion. A wire lid speculum was placed into the left eye and the operating microscope was swung into position. Using 0.12 forceps and a Supersharp blade a paracentesis port was made 2 o'clock hours away from the 3 o'clock position of the patient's left eye. 1% non-preserved Lidocaine was then injected into the anterior chamber for anesthesia. A 2.0 mm keratotome blade was then used to make a shelved clear corneal incision at the 3 o'clock position of the left eye. Amvisc was injected into the anterior chamber and a cystotome and Utrata forceps were used to perform a curvilinear capsulorrhexis. BSS on a hydrodissection cannula was used to hydrodissect the lens nucleus away from the capsular bag. The phacoemulsification handpiece was then used in a stop and chop fashion to remove the lens nucleus. The irrigation and aspiration handpiece was then used to remove the residual cortical material. Amvisc was injected into the capsular bag and anterior chamber and a Bausch [employer] Lomb MX60E 22.5 Diopter intraocular lens was injected into the capsular bag. Irrigation and aspiration handpiece was used to remove the residual viscoelastic material. The wounds were hydrated and noted to be watertight. The wire lid speculum was removed from the eye. Vigamox, Brimonidine, and TobraDex ointment were placed on the eye and it was shielded. It should be noted that EndoCoat was used extensively during the case to protect the cornea endothelium. DISPOSITION: The patient tolerated the procedure well and was wheeled to the post anesthesia care unit in stable condition. I attest to the content of the Intraoperative Record and any orders documented therein. Any exceptions are noted below. I attest to the content of the Intraoperative Record and any orders documented therein. Any exceptions are noted below.
--- NOTE | 2017-07-10 07:30 | Discharge Instructions-SurgCtr ---
Discharge Instructions Date of Service July 10, 2017. Visit Reason for Visit: Left Cataract Discharge Discharge Diagnosis / Problem: cataract left eye Discharge Goals Goal(s): Improve function Medications Stopped Medications Name(s): 1/2 dose Insulin Activity Recommendations Activity Limitations: per Instructions/Follow-up section Lifting Limitations: no more than 5 pounds Anesthesia . Post Anesthesia Instructions: If you have had General Anesthesia or IV Sedation: * Do not drive today. * Resume driving when surgeon permits. * Do not make important decisions or sign legal documents today. * Call surgeon for: 1. Temperature elevations greater than 101 degrees F. 2. Uncontrollable pain. 3. Excessive bleeding. 4. Persistent nausea and vomiting. 5. Medication intolerance (nausea, vomiting or rash). * For nausea and vomiting use only clear liquids such as: tea, soda, bouillon until nausea subsides, then gradually increase diet as tolerated. * If you have any concerns or questions, call your surgeon's office. If physician is unavailable and it is an emergency, call 911 or go to the nearest emergency room. . Instructions / Follow-Up Instructions / Follow-Up ACTIVITY RECOMMENDATIONS: * Light activities * You may walk outside, read, watch television. * Mild irritation and blurred vision are common for the first few days, redness around the white part of the eye is common. MEDICATIONS: Resume previous medications unless instructed otherwise by your surgeon. Eye drops (today and tomorrow): Cipro - one drop in operative eye every 2 hours while awake Prednisolone 1% - one drop in operative eye every 2 hours while awake Ilevro - one drop operative eye 1 times daily SPECIAL CARE INSTRUCTIONS: * If any problems or concerns, please call Dr. Joseph's office at . * Keep plastic shield taped over eye to sleep at night. * Keep plastic shield taped over eye except to administer eye drops. * Keep plastic shield on until office visit the following day. FOLLOW UP VISIT: Follow-up with Dr. Joseph in the [place] office as scheduled. If not already scheduled, please call the office at . Diet Recommendations Home Diet: resume previous diet Procedures Procedures Performed: Left Cataract Phacoemulsification With Intraocular Lens Implant Pending Studies Studies pending at discharge: no Medical Emergencies . Who to Call and When: Medical Emergencies: If at any time you feel your situation is an emergency, please call 911 immediately. . Non-Emergent Contact Non-Emergency issues call your: Hadoop Infrastructure Architect . . "Provider Documentation" section prepared by Ga Joseph. .
[2017-07-10 07:33] VITALS: TEMP 36.4
[2017-07-10 07:58] VITALS: BP 127/66; PULSE 62; O2SAT 95
--- NOTE | 2017-07-10 08:04 | Anesthesia Progress Nt - [facility] ---
Anesthesia Post Op Note Date & Time July 10, 2017 at 08:04 Vital Signs Pain Intensity: 0 Vital Signs Past 12 Hours Date Time Temp Pulse Resp B/P (MAP) Pulse Ox O2 Delivery O2 Flow Rate FiO2 07/10/17 07:58 62 16 127/66 (86) 95 Room Air 07/10/17 07:33 36.4 60 16 125/72 (89) 96 Room Air 07/10/17 06:26 36.8 73 16 132/89 (103) 94 Room Air Notes Mental Status: alert / awake / arousable, participated in evaluation Pt Amnestic to Procedure: Yes Nausea / Vomiting: adequately controlled Pain: adequately controlled Airway Patency, RR, SpO2: stable & adequate BP & HR: stable & adequate Hydration State: stable & adequate Anesthetic Complications: no major complications apparent
== END | disposition home or self-care (01) ==
LOC: X.SURG 06:08
PROVIDERS: ATTEND Ophthalmology
DX: H25.12 Age-related nuclear cataract, left eye (principal); E11.22 Type 2 diabetes mellitus with diabetic chronic kidney disease; I10 Essential (primary) hypertension; I13.10 Hypertensive heart and chronic kidney disease without heart failure, with stage 1 through stage 4 chronic kidney disease, or unspecified chronic kidney disease; N18.3 Chronic kidney disease, stage 3 (moderate); I34.1 Nonrheumatic mitral (valve) prolapse; I51.9 Heart disease, unspecified; Z79.4 Long term (current) use of insulin; Z79.899 Other long term (current) drug therapy; Z88.8 Allergy status to other drugs, medicaments and biological substances

== ENCOUNTER 2020-03-23 17:39 | Inpatient (IN) ==
[2020-03-23] MEDS ORDERED: ONDANSETRON INJ 2 MG/ML 2 ML VIAL IV STA (18:17)
[2020-03-23] MEDS ORDERED: MoRPHine SULFATE 4 MG/ML 1 ML CARP\\VIAL IV PRN (18:17)
[2020-03-23] MEDS ORDERED: SODIUM CHLORIDE 0.9% 250 ML IV ONE (18:17)
--- NOTE | 2020-03-23 18:23 | Emergency Department Note ---
Impression & Plan Central abdominal pain, Incarcerated umbilical hernia, Vomiting ED Provider Note NAME: PAMELA DELAROSA AGE: 79 SEX: M : 1940 ARRIVES VIA: Walk-In INFORMANT: [Patient] ED PROVIDER(S): [Devonte Wong MD] CHIEF COMPLAINT: Abdominal pain HISTORY OF PRESENT ILLNESS: Patient is an 79-year-old male who states that about 3 hours ago he was plowing snow. When he got off of the tractor, he had pain in the mid belly. He began vomiting. The pain is a 9 on a scale 1 out of 10. His umbilical hernia is no longer reducible and is now quite tender. There has been no cough or cold or congestion. He has no chest pain. He was in baseline health prior to the pain beginning. He has had the hernia for over 10 years but it has never been caught out like this and it has never been tender. REVIEW OF SYSTEMS: See HPI for pertinent positives and negatives. A total of ten systems were reviewed and were otherwise negative. PMHx/PSHx: See Below SOCIAL HISTORY: See Below. PHYSICAL EXAM: GENERAL: Patient is in moderate distress from pain. HEENT: No acute trauma, normocephalic atraumatic, mucous membranes moist, no nasal congestion, no scleral icterus. NECK: No stridor, no adenopathy, no meningismus, trachea is midline. LUNGS: Clear to auscultation bilaterally, no wheeze, no rhonchi, breath sounds equal. HEART: 3/6 systolic murmur heard best at the right sternal border. Regular rate and rhythm. ABDOMEN: He has a 5 to 6 cm palpable umbilical hernia. The hernia is quite tender and it is clearly not reducible. The rest of the abdomen is soft. EXTREMITIES: No cyanosis, mild bilateral pedal edema, full range of motion of all the joints without pain or difficulty, no signs for acute trauma. NEUROLOGIC: Oriented x 3, no acute motor or sensory deficits, no focal weakness. SKIN: No rash, no jaundice, no diaphoresis. DIFFERENTIAL DIAGNOSIS: Appendicitis, testicular torsion, infections, diverticulitis, UTI, obstruction, mesenteric ischemia, incarcerated hernia, aortic pathology, inflammatory bowel disease, renal colic, PUD, pancreatitis, biliary pathology, volvulus, constipation, as well as other pathologies. EMERGENCY DEPARTMENT COURSE/PROCEDURES: ECG: Indication was abdominal pain. The ECG shows a ventricular pacemaker with an occasional bois forte ventricular beat. There is no worrisome ST elevation, the rate was 63. QTc was 472. Continuous Cardiac Monitoring: An order was placed for continuous cardiac monitoring. The monitor shows a rate of 60 with a ventricular pacemaker. MEDICAL DECISION MAKING: There is no leukocytosis. The patient is somewhat anemic but his hemoglobin today is better than his previous testing. There is a normal platelet count. INR is 1.9, this is consistent with his Coumadin use. Chest x-ray shows some cardiomegaly and some chronic change at the left base. His x-ray today looks similar to previous films. No concerning heart failure. ECG shows a functioning ventricular pacemaker. There is some renal insufficiency but this appears baseline looking back at previous testing. No concerning electrolyte abnormality requiring emergent correction. There was a slight elevation to the alk phos, the remaining liver enzymes were unremarkable. Covid testing is pending. On exam, the patient was quite tender over the umbilicus, he had a hernia which was not reducible. The patient had an obvious incarcerated umbilical hernia. Patient was given IV morphine for pain, IV Zofran for nausea. He was given IV saline for hydration. I spoke immediately to surgery, Dr. Pino saw the patient here in the ED, the patient is being transferred to the operating room for surgical intervention . The patient is aware of his findings, he understands the need for the operation, case management has been involved. He seems to be feeling better since the morphine was administered. 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 DM type 2 (diabetes mellitus, type 2) Dyslipidemia Gout History of cardioversion History of DVT (deep vein thrombosis) HTN (hypertension) Obesity (BMI 35.0-39.9 without comorbidity) Osteoarthritis SA node dysfunction Surgical History Cardiac pacemaker in situ History of maze procedure S/P knee surgery S/P mitral valve repair S/P patent foramen ovale closure in 2010 with repair of mitral/tricuspid valve S/P tricuspid valve repair Family History Father , age 66 Prostate cancer Mother , age 68 Stroke Brother Kidney disease Sister Diabetes Hypoglycemia Social History Smoking Status: Never smoker Second Hand Exposure: No; Hx Alcohol Use: No Hx Substance Use: No Preferred Language: Slovak Communication Ability: Effective Account Development Representative Required: No Beliefs That Will Affect Care: None marital status: Current Living Situation: Spouse Feels Safe at Home: Yes Assistive Devices: Cane Allergies Allergies Allergy/AdvReac Type Severity Reaction Status Date / Time allopurinol Allergy Unknown RASH Verified 03/23/20 18:48 spironolactone Allergy Unknown CHEST PAIN Verified 03/23/20 18:48 Home Meds Home Medications Medication Instructions Recorded Confirmed febuxostat [Uloric] 40 mg PO DAILY 11/13/17 03/23/20 furosemide 80 mg PO BID 09/04/19 03/23/20 metoprolol succinate 25 mg PO QAM 09/04/19 03/23/20 semaglutide [Ozempic] 0.5 mg SUBCUT WK 09/04/19 03/23/20 metolazone 2.5 mg PO UD PRN 03/23/20 03/23/20 potassium chloride 40 meq PO BID 03/23/20 03/23/20 warfarin See Rx Instructions .ROUTE .COMPLEX 03/23/20 03/23/20 Results & Data (ED) Vital Signs Vital Signs - 24 hr 03/23/20 17:46 03/23/20 18:54 Temperature 36.6 C Temperature Source Oral Pulse Rate 63 Pulse Rate [Left] 60 Pulse Rhythm [Left] Regular Pulse Strength [Left] Normal Respiratory Rate 18 18 Respiratory Effort / Characteristics Non-Labored Spontaneous Respiratory Depth Normal Blood Pressure 181/66 H Blood Pressure [Right Arm] 164/68 H Blood Pressure Mean 104 Blood Pressure Mean [Right Arm] 100 Blood Pressure Position [Right Arm] Lying Pulse Oximetry 99 98 Oxygen Delivery Method Room Air Room Air Sepsis Recent Fever Within 48 Hours No Sepsis New/Unexplained Change in Mental Status No Sepsis Action Taken by Nursing No Action Required Home Medications Current Medication List: was personally reviewed by me Laboratory Data Attestation: I reviewed the patient's lab results. Result diagrams: 03/23/20 18:42 03/23/20 18:42 Lab Results 03/23/20 03/23/20 03/23/20 Range/Units 18:42 18:42 18:42 WBC 10.25 (4.8-10.8) K/uL RBC 4.21 L (4.7-6.1) M/uL Hgb 12.9 L (14.0-18.0) g/dL Hct 38.1 L (42-52) % MCV 90.5 (80-100) fL MCH 30.6 (25-34) pg MCHC 33.9 (32-36) g/dL RDW Std Deviation 45.0 (36.4-46.3) fL RDW Coeff of Mustapha 13.6 (11.5-14.5) % Plt Count 142 (130-400) K/uL MPV 10.2 (7.4-10.4) fL Immature Gran % (Auto) 0.2 % Neut % (Auto) 81.9 % Lymph % (Auto) 11.5 % King[place] % (Auto) 5.5 % Eos % (Auto) 0.7 % Baso % (Auto) 0.2 % Neut # (Auto) 8.40 H (1.4-6.5) K/uL Lymph # (Auto) 1.18 L (1.2-3.4) K/uL Kingman # (Auto) 0.56 (0.11-0.59) K/uL Eos # (Auto) 0.07 (0-0.5) K/uL Baso # (Auto) 0.02 (0-0.2) K/uL Immature Gran # (Auto) 0.02 (0.00-0.02) K/uL PT 19.3 H (9.0-12.0) Seconds INR 1.9 H (0.9-1.1) APTT 33.6 H (21.0-31.0) Seconds PTT Ratio 1.2 Sodium 138 (136-145) mmol/L Potassium 3.7 (3.5-5.1) mmol/L Chloride 103 (98-107) mmol/L Carbon Dioxide 29 (21-32) mmol/L Anion Gap 6.0 (3-11) BUN 37 H (7-18) mg/dl Creatinine 1.87 H (0.6-1.4) mg/dl Est Cr Clr Drug Dosing 32.0 ml/min Est GFR ( Amer) 38.5 Est GFR (Non-Af Amer) 33.2 BUN/Creatinine Ratio 19.7 (10-20) Glucose 226 H (70-99) mg/dl Calcium 9.5 (8.5-10.1) mg/dl Total Bilirubin 1.0 (0.2-1) mg/dl AST 22 (15-37) U/L ALT 23 (12-78) U/L Alkaline Phosphatase 159 H (45-117) U/L Total Protein 8.9 H (6.4-8.2) gm/dl Albumin 3.6 (3.4-5.0) gm/dl Globulin 5.3 H (2.5-4.0) gm/dl Albumin/Globulin Ratio 0.7 L (0.9-2) COVID-19 Eval Order 03/23/20 Range/Units 18:55 WBC (4.8-10.8) K/uL RBC (4.7-6.1) M/uL Hgb (14.0-18.0) g/dL Hct (42-52) % MCV (80-100) fL MCH (25-34) pg MCHC (32-36) g/dL RDW Std Deviation (36.4-46.3) fL RDW Coeff of Mustapha (11.5-14.5) % Plt Count (130-400) K/uL MPV (7.4-10.4) fL Immature Gran % (Auto) % Neut % (Auto) % Lymph % (Auto) % King[place] % (Auto) % Eos % (Auto) % Baso % (Auto) % Neut # (Auto) (1.4-6.5) K/uL Lymph # (Auto) (1.2-3.4) K/uL Kingman # (Auto) (0.11-0.59) K/uL Eos # (Auto) (0-0.5) K/uL Baso # (Auto) (0-0.2) K/uL Immature Gran # (Auto) (0.00-0.02) K/uL PT (9.0-12.0) Seconds INR (0.9-1.1) APTT (21.0-31.0) Seconds PTT Ratio Sodium (136-145) mmol/L Potassium (3.5-5.1) mmol/L Chloride (98-107) mmol/L Carbon Dioxide (21-32) mmol/L Anion Gap (3-11) BUN (7-18) mg/dl Creatinine (0.6-1.4) mg/dl Est Cr Clr Drug Dosing ml/min Est GFR ( Amer) Est GFR (Non-Af Amer) BUN/Creatinine Ratio (10-20) Glucose (70-99) mg/dl Calcium (8.5-10.1) mg/dl Total Bilirubin (0.2-1) mg/dl AST (15-37) U/L ALT (12-78) U/L Alkaline Phosphatase (45-117) U/L Total Protein (6.4-8.2) gm/dl Albumin (3.4-5.0) gm/dl Globulin (2.5-4.0) gm/dl Albumin/Globulin Ratio (0.9-2) COVID-19 Eval Order Covid19 [facility] Data Radiologist's Impression: XR chest 1V portable HISTORY: 79 years-old Male abd pain acute atypical chest and abdominal pain COMPARISON: Chest radiographs 01/29/2018 TECHNIQUE: Portable AP view of the chest FINDINGS: Cardiac silhouette is enlarged. Prior median sternotomy with cardiac valvular replacement. Atrial exclusion device with left subclavian pacer. No pneumothorax when large pleural effusion. Blunting of the costophrenic angles. Pulmonary vascular congestion with minimal bibasilar densities. To degenerative changes of the shoulders and spine. IMPRESSION: 1. Cardiomegaly with pulmonary vascular congestion. 2. Mild bibasilar densities suggest atelectasis. Discharge Plan Visit Data Chief Complaint: Pain (Generalized) Stated Complaint: AGGRAVATED HERNIA ED Provider: Devonte Wong Discharge Problem: Central abdominal pain, Incarcerated umbilical hernia, Vomiting Patient Disposition: Admitted As Inpatient Condition: Fair Forms Stand Alone Forms: My [facility] Prescriptions Prescriptions: No Action furosemide 80 mg tablet 80 mg PO BID RF: 0 metoprolol succinate 25 mg tablet extended release 24 hr 25 mg PO QAM RF: 0 Ozempic 0.25 mg or 0.5 mg(2 mg/1.5 mL) pen injector 0.5 mg SUBCUT WK RF: 0 febuxostat [Uloric] 40 mg Tablet 40 mg PO DAILY RF: 0 potassium chloride 20 mEq tablet extended release 40 meq PO BID RF: 0 warfarin 5 mg tablet See Rx Instructions .ROUTE .COMPLEX RF: 0 metolazone 2.5 mg tablet 2.5 mg PO UD PRN (Reason: Weight Gain) RF: 0 Referrals Referrals: Amie Flores DO [Primary Care Provider] - Discharge Problem: Vomiting Qualifiers: Vomiting type: unspecified Vomiting Intractability: non-intractable Nausea presence: with nausea Qualified Code(s): R11.2 - Nausea with vomiting, unspecified
[2020-03-23 18:52] LABS: Basophils # (auto) 0.02 K/uL (0-0.2); Basophils % (auto) 0.2 %; Eosinophils # (auto) 0.07 K/uL (0-0.5); Eosinophils % (auto) 0.7 %; Hematocrit (blood only) 38.1 % (42-52); Hemoglobin 12.9 g/dL (14.0-18.0); Immature Granulocytes # (auto) 0.02 K/uL (0.00-0.02); Immature Granulocytes % (auto) 0.2 %; Lymphocytes # (auto) 1.18 K/uL (1.2-3.4); Lymphocytes % (auto) 11.5 %; Mean Corpuscular Hemoglobin 30.6 pg (25-34); Mean Corpuscular Hgb Conc 33.9 g/dL (32-36); Mean Corpuscular Volume 90.5 fL (80-100); Mean Platelet Volume 10.2 fL (7.4-10.4); Monocytes # (auto) 0.56 K/uL (0.11-0.59); Monocytes % (auto) 5.5 %; Neutrophils % (auto) 81.9 %; Platelet Count 142 K/uL (130-400); RDW Coefficient of Variation 13.6 % (11.5-14.5); Red Blood Count 4.21 M/uL (4.7-6.1); White Blood Count 10.25 K/uL (4.8-10.8)
[2020-03-23 19:03] LABS: INR 1.9 (0.9-1.1); Partial Thromboplastin Ratio 1.2; Partial Thromboplastin Time 33.6 Seconds (21.0-31.0); Prothrombin Time 19.3 Seconds (9.0-12.0)
--- NOTE | 2020-03-23 19:13 | XRay Report ---
XR chest 1V portable HISTORY: 79 years-old Male abd pain acute atypical chest and abdominal pain COMPARISON: Chest radiographs 01/29/2018 TECHNIQUE: Portable AP view of the chest FINDINGS: Cardiac silhouette is enlarged. Prior median sternotomy with cardiac valvular replacement. Atrial exc lusion device with left subclavian pacer. No pneumothorax when large pleural effusion. Blunting of th e costophrenic angles. Pulmonary vascular congestion with minimal bibasilar densities. To degenerativ e changes of the shoulders and spine. IMPRESSION: 1. Cardiomegaly with pulmonary vascular congestion. 2. Mild bibasilar densities suggest atelectasis. ACT 112: Negative or not required by law. The above report was generated using voice recognition software. It may contain grammatical, syntax o r spelling errors. Electronically signed by: Alfie Dodd M.D. 03/23/2020 7:11 PM
[2020-03-23 19:20] LABS: Albumin Level 3.6 gm/dl (3.4-5.0); BUN Creatinine Ratio 19.7 (10-20); Calcium 9.5 mg/dl (8.5-10.1); Est GFR (African American) 38.5; Est GFR (Non-African American) 33.2; Potassium 3.7 mmol/L (3.5-5.1)
[2020-03-23 19:23] LABS: Albumin Globulin Ratio 0.7 (0.9-2); Globulin 5.3 gm/dl (2.5-4.0); Total Protein 8.9 gm/dl (6.4-8.2)
--- NOTE | 2020-03-23 19:25 | History & Physical Report ---
Date of Service March 23, 2020 Assessment & Plan (1) Umbilical hernia, incarcerated: Patient has an incarcerated umbilical hernia unable to reduce likely incarcerated fatty tissue since the rest of the abdomen is benign and has had no GI symptoms and the hernia is been present for long time this point I recommended the patient to undergo repair open possible mesh if there is no ischemic tissue identified risk and complication of the surgery were explained to patient and I talked to his also and will proceed accordingly At this time we are waiting for a Covid test and INR chest x-ray that I saw shows no evidence of congestive heart failure and no pleural fluid All questions related to the surgery were explained to the patient History of Present Illness Chief Complaint: Incarcerated umbilical hernia Primary Care Provider: Amie Flores, DO This pleasant 79-year-old gentleman who walks around with a cane on Coumadin has had multiple cardiac procedures including aortic valve tricuspid valve, mitral valve maze procedure pacemaker insertion with off and on congestive heart failure history of foramen ovale closure who walks around pretty much with a cane without any shortness of breath has known to have an bellybutton hernia for a number years but today it became bigger very tender unable to touch it and came into the emergency room for evaluation we were asked to see the patient approximately 630 this evening He denies any nausea or vomiting or any other abdominal pain other than around the hernia His last INR was proxy a month ago was 2 and presently he is having lab work repeated including a Covid test He does have a history of chronic renal insufficiency atrial fibrillation gout anemia of chronic illness obstructive sleep apnea arthritis of the knee right Allergies Allergy/AdvReac Type Severity Reaction Status Date / Time allopurinol Allergy Unknown RASH Verified 03/23/20 18:48 spironolactone Allergy Unknown CHEST PAIN Verified 03/23/20 18:48 Home Medications Medication Instructions Recorded Confirmed Type febuxostat [Uloric] 40 mg PO DAILY 11/13/17 03/23/20 History furosemide 80 mg PO BID 09/04/19 03/23/20 History metoprolol succinate 25 mg PO QAM 09/04/19 03/23/20 History semaglutide [Ozempic] 0.5 mg SUBCUT WK 09/04/19 03/23/20 History metolazone 2.5 mg PO UD PRN 03/23/20 03/23/20 History potassium chloride 40 meq PO BID 03/23/20 03/23/20 History warfarin See Rx Instructions .ROUTE .COMPLEX 03/23/20 03/23/20 History Past Med/Surg History Medical History (Updated 03/23/20 @ 19:23 by Reyes Pino MD) Anemia of chronic disease Aortic stenosis Atrial fibrillation Atrial flutter CKD (chronic kidney disease), stage III 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 DM type 2 (diabetes mellitus, type 2) Dyslipidemia Gout History of cardioversion History of DVT (deep vein thrombosis) HTN (hypertension) Obesity (BMI 35.0-39.9 without comorbidity) Osteoarthritis SA node dysfunction Surgical History Cardiac pacemaker in situ History of maze procedure S/P knee surgery S/P mitral valve repair S/P patent foramen ovale closure in 2010 with repair of mitral/tricuspid valve S/P tricuspid valve repair Family History Father , age 66 Prostate cancer Mother , age 68 Stroke Brother Kidney disease Sister Diabetes Hypoglycemia Social History Smoking Status: Never smoker Second Hand Exposure: No; Hx Alcohol Use: No Hx Substance Use: No Preferred Language: Belarusian Communication Ability: Effective Lapper Required: No Beliefs That Will Affect Care: None marital status: Current Living Situation: Spouse Feels Safe at Home: Yes Assistive Devices: Cane Physical Exam Physical Exam: Patient is alert coherent in no distress Constitutional: WD/WN, vitals as above well developed and average body habitus Eyes: PERRL, conjunctivae normal, anicteric sclerae ENMT: external ear and nose normal, oropharynx normal Neck: trachea midline, no thyromegaly No jugular vein distention at 45 Respiratory: normal respiratory effort, lungs clear to auscultation normal respiratory effort Cardiovascular: Rate/Rhythm: + irregularly irregular Gastrointestinal (Abdomen): Abdomen is soft no tenderness except in the umbilical area and supraumbilical area the incarcerated hernia is approximately 6 to 8 cm very tender to just touching it there is no cellulitis and no obvious edema in the area Musculoskeletal: No pedal edema appreciated at this time Results & Data ([facility]) Vital Signs (Past 12 Hours) Vital Signs Temp Pulse Pulse Resp BP BP Pulse Ox 03/23/20 18:54 60 18 164/68 H 98 03/23/20 17:46 36.6 C 63 18 181/66 H 99
--- NOTE | 2020-03-23 19:53 | Hospitalist Consultation ---
Date of Consultation March 23, 2020 Assessment & Plan (1) Incarcerated umbilical hernia: Final Assessment and Recommendations as follows : Incarcerated umbilical hernia chronic diastolic heart failure (EF 55%, TTE 2019), patient euvolemic although with some congestion on CXR (less than last CXR from 01/2018) SSS status post PPM on Coumadin, paced rhythm, INR slightly subtherapeutic history CAD, status post AVR HTN, slightly elevated secondary to discomfort BRIGITTE (CPAP noncompliance as per records) DM2 on Ozempic and intermittent insulin at home, reasonable control as of recent outpatient hemoglobin A1c of 7.22 September 2019 CRI, creatinine at baseline chronic anemia, hemoglobin at baseline Recommend postop medical telemetry monitoring given suboptimal BP and if patient to be strictly n.p.o. to facilitate parenteral administration of home beta- cyn inpatient Management of umbilical hernia as per General Surgery Careful perioperative crystalloid administration given baseline congestion on CXR Analgesia, no NSAIDs please given kidney dysfunction Resume home diuretic Rx guided by daily PRP once diet advanced. Basal insulin, ISS BG goal [id number], update hemoglobin A1c DVT prophylaxis. SCDs while Coumadin on hold if INR less than 2. Resume Coumadin once bleeding risk is deemed to be minimal and negligible to attain goal INR between 2 and 3. Thank you very much for this consultation. Dr. Levin will follow patient's progress. Text document was generated using Fliggo voice recognition software. It may contain grammatical or spelling errors. Kindly contact undersigned for clarification of any documentation item in question. History of Present Illness Reason for Consultation: Medical management Requesting Physician: Dr. Pino Attending Physician: Dr. Pino History of Present Illness PCP : Dr. Flores History obtained from patient and records. Medical history significant for chronic diastolic heart failure (EF 55%, TTE 2019) SSS status post PPM on Coumadin, history CAD, status post AVR, HTN, hyperlipidemia, BRIGITTE (CPAP noncompliance as per records), DM2 on Ozempic and intermittent insulin at home, CRI (baseline creatinine 1.9), hx DVT as per records, chronic anemia (baseline hemoglobin 12). Last confinement January 2018 for decompensated heart failure. Patient got off his tractor today when he noted achy central abdominal pain along with a bulging umbilical mass which could not be pushed down. Some nausea, emesis. Good bowel movement in the morning. No chest pain, no S OB, no fever, no chills. No fluid retention as per patient. Patient brought to the ER for evaluation. Patient to be taken to the OR by General Surgery for incarcerated umbilical hernia. 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 Allergies Allergy/AdvReac Type Severity Reaction Status Date / Time allopurinol Allergy Unknown RASH Verified 03/23/20 18:48 spironolactone Allergy Unknown CHEST PAIN Verified 03/23/20 18:48 Home Medications Medication Instructions Recorded Confirmed Type febuxostat [Uloric] 40 mg PO DAILY 11/13/17 03/23/20 History furosemide 80 mg PO BID 09/04/19 03/23/20 History metoprolol succinate 25 mg PO QAM 09/04/19 03/23/20 History semaglutide [Ozempic] 0.5 mg SUBCUT WK 09/04/19 03/23/20 History metolazone 2.5 mg PO UD PRN 03/23/20 03/23/20 History potassium chloride 40 meq PO BID 03/23/20 03/23/20 History warfarin See Rx Instructions .ROUTE .COMPLEX 03/23/20 03/23/20 History Patient History Medical History (Updated 03/23/20 @ 20:15 by Charlie Alejandra MD) Anemia of chronic disease Aortic stenosis noted to be severe in medical note Atrial fibrillation Atrial flutter CKD (chronic kidney disease), stage III 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 DM type 2 (diabetes mellitus, type 2) Dyslipidemia Gout History of cardioversion History of DVT (deep vein thrombosis) HTN (hypertension) Obesity (BMI 35.0-39.9 without comorbidity) Osteoarthritis SA node dysfunction Surgical History Cardiac pacemaker in situ History of maze procedure S/P knee surgery S/P mitral valve repair S/P patent foramen ovale closure in 2010 with repair of mitral/tricuspid valve S/P tricuspid valve repair Family History Father , age 66 Prostate cancer Mother , age 68 Stroke Brother Kidney disease Sister Diabetes Hypoglycemia Social History Smoking Status: Never smoker Second Hand Exposure: No; Hx Alcohol Use: No Hx Substance Use: No Preferred Language: Turkmen Communication Ability: Effective Cancellation Clerk Required: No Beliefs That Will Affect Care: None marital status: Current Living Situation: Spouse Feels Safe at Home: Yes Assistive Devices: Cane Review of Systems Review of Systems: As per HPI, all 10 systems reviewed, all other ROS negative Physical Exam Physical Exam: GENERAL: Slightly uncomfortable, pleasant, no respiratory distress SKIN: Normal color, warm HEENT: Alopecia, pink palpebral conjunctivae, no ptosis, dry buccal mucosa NECK : Supple, no tenderness CHEST : CTA, no tenderness HEART : RRR, systolic murmur ABDOMEN: Some distention, tender irreducible umbilical mass EXTREMITIES : No LE swelling/tenderness, no other conspicuous deformities noted NEUROLOGIC : Coherent, no facial asymmetry, no other gross focality Results & Data Results & Data ([facility]) Vital Signs (Past 12 Hours) Vital Signs Temp Pulse Pulse Resp BP BP Pulse Ox 03/23/20 19:39 62 20 159/73 H 98 03/23/20 18:54 60 18 164/68 H 98 03/23/20 17:46 36.6 C 63 18 181/66 H 99 Laboratory Results Laboratory Results WBC 10.25 K/uL (4.8-10.8) 03/23/20 18:42 RBC 4.21 M/uL (4.7-6.1) L 03/23/20 18:42 Hgb 12.9 g/dL (14.0-18.0) L 03/23/20 18:42 Hct 38.1 % (42-52) L 03/23/20 18:42 MCV 90.5 fL (80-100) 03/23/20 18:42 MCH 30.6 pg (25-34) 03/23/20 18:42 MCHC 33.9 g/dL (32-36) 03/23/20 18:42 RDW Std Deviation 45.0 fL (36.4-46.3) 03/23/20 18:42 RDW Coeff of Mustapha 13.6 % (11.5-14.5) 03/23/20 18:42 Plt Count 142 K/uL (130-400) 03/23/20 18:42 MPV 10.2 fL (7.4-10.4) 03/23/20 18:42 Immature Gran % (Auto) 0.2 % 03/23/20 18:42 Neut % (Auto) 81.9 % 03/23/20 18:42 Lymph % (Auto) 11.5 % 03/23/20 18:42 [place] % (Auto) 5.5 % 03/23/20 18:42 Eos % (Auto) 0.7 % 03/23/20 18:42 Baso % (Auto) 0.2 % 03/23/20 18:42 Neut # (Auto) 8.40 K/uL (1.4-6.5) H 03/23/20 18:42 Lymph # (Auto) 1.18 K/uL (1.2-3.4) L 03/23/20 18:42 [place] # (Auto) 0.56 K/uL (0.11-0.59) 03/23/20 18:42 Eos # (Auto) 0.07 K/uL (0-0.5) 03/23/20 18:42 Baso # (Auto) 0.02 K/uL (0-0.2) 03/23/20 18:42 Immature Gran # (Auto) 0.02 K/uL (0.00-0.02) 03/23/20 18:42 PT 19.3 Seconds (9.0-12.0) H 03/23/20 18:42 INR 1.9 (0.9-1.1) H 03/23/20 18:42 APTT 33.6 Seconds (21.0-31.0) H 03/23/20 18:42 PTT Ratio 1.2 03/23/20 18:42 Sodium 138 mmol/L (136-145) 03/23/20 18:42 Potassium 3.7 mmol/L (3.5-5.1) 03/23/20 18:42 Chloride 103 mmol/L (98-107) 03/23/20 18:42 Carbon Dioxide 29 mmol/L (21-32) 03/23/20 18:42 Anion Gap 6.0 (3-11) 03/23/20 18:42 BUN 37 mg/dl (7-18) H 03/23/20 18:42 Creatinine 1.87 mg/dl (0.6-1.4) H 03/23/20 18:42 Est Cr Clr Drug Dosing 32.0 ml/min 03/23/20 18:42 Est GFR ( Amer) 38.5 03/23/20 18:42 Est GFR (Non-Af Amer) 33.2 03/23/20 18:42 BUN/Creatinine Ratio 19.7 (10-20) 03/23/20 18:42 Glucose 226 mg/dl (70-99) H 03/23/20 18:42 Calcium 9.5 mg/dl (8.5-10.1) 03/23/20 18:42 Total Bilirubin 1.0 mg/dl (0.2-1) 03/23/20 18:42 AST 22 U/L (15-37) 03/23/20 18:42 ALT 23 U/L (12-78) 03/23/20 18:42 Alkaline Phosphatase 159 U/L (45-117) H 03/23/20 18:42 Total Protein 8.9 gm/dl (6.4-8.2) H 03/23/20 18:42 Albumin 3.6 gm/dl (3.4-5.0) 03/23/20 18:42 Globulin 5.3 gm/dl (2.5-4.0) H 03/23/20 18:42 Albumin/Globulin Ratio 0.7 (0.9-2) L 03/23/20 18:42 COVID-19 Eval Order Covid19 IDNow [facility] 03/23/20 18:55 SARS-CoV-2, RNA, NAAT NEGATIVE (NEGATIVE) 03/23/20 18:55 Diagnostic Findings Chest x-ray : 1. Cardiomegaly with pulmonary vascular congestion. 2. Mild bibasilar densities suggest atelectasis. EKG as per my interpretation as per my interpretation rate 65, paced rhythm
[2020-03-23] MEDS ORDERED: fentaNYL citrate 100 MCG/2 ML VIAL ONE ×2 (19:58→22:32)
[2020-03-23] MEDS ORDERED: SUCCINYLCHOLINE 100MG/5ML SYR IV ONE (19:59)
[2020-03-23] MEDS ORDERED: LIDOCAINE HCL 2% 2 ML VIAL/AMP(20MG/ML) INFIL ONE (20:00)
[2020-03-23] MEDS ORDERED: PROPOFOL IV EMULSION 10 MG/ML 20 ML VIAL IV ONE (20:00)
[2020-03-23] MEDS ORDERED: ROCURONIUM BROMIDE 10 MG/ML 5 ML VIAL IV ONE (20:07)
[2020-03-23] MEDS ORDERED: ONDANSETRON INJ 2 MG/ML 2 ML VIAL ONE (20:07)
[2020-03-23] MEDS ORDERED: PHENYLEPHRINE 100MCG/ML 5ML SYR IV PRN (20:13)
[2020-03-23] MEDS ORDERED: ATROPINE SULFATE 0.1 MG/ML 10ML SYR IV PRN (20:13)
[2020-03-23] MEDS ORDERED: DEXTROSE 50% 50 ML SYRINGE IV PRN (20:13)
[2020-03-23] MEDS ORDERED: GLUCOSE 40% GEL 15 GM TUBE PO PRN (20:13)
[2020-03-23] MEDS ORDERED: LABETALOL HCL IV 5 MG/ML 20ML IV PRN (20:13)
[2020-03-23] MEDS ORDERED: CARBOHYDRATES FOR HYPOGLYCEMIA PO PRN (20:13)
[2020-03-23] MEDS ORDERED: GLUCAGON FOR INJ 1 MG VIAL SQ PRN (20:13)
[2020-03-23] MEDS ORDERED: GLUCOSE 10 TABS/TUBE PO PRN (20:13)
[2020-03-23] MEDS ORDERED: ePHEDrine sulfate 50 MG/ML AMP IV PRN (20:13)
[2020-03-23] MEDS ORDERED: ONDANSETRON INJ 2 MG/ML 2 ML VIAL IV PRN ×2 (20:13→23:32)
[2020-03-23] MEDS ORDERED: MEPERIDINE HCL 25 MG/ML CARP/VIAL IV PRN (20:13)
[2020-03-23] MEDS ORDERED: HYDROmorphone INJ 1 MG/ML SYRINGE IV PRN (20:13)
[2020-03-23] MEDS ORDERED: BUPIVACAINE/EPINEPHRINE 0.5% MPF 1:200,000 30 ML VIAL ONE (20:14)
[2020-03-23] MEDS ORDERED: BACITRACIN INJ 50,000 UNIT VIAL ONE (20:14)
--- NOTE | 2020-03-23 20:16 | Anesthesiology Consultation ---
Date of Service March 23, 2020 Covid 19 negative today. Assessment & Plan (1) Encounter for pre-operative examination: Chart Review Chart Review: Acceptable Risk for Surgery (emergency surgery) and Patient NOT seen in Pre Admission Testing Consults Requested none History Surgery Operation Date: 03/23/20 19:30 Proposed Procedures p Umbilical Hernia Repair - Reyes Pino MD Height/Weight Height: 5 ft 7 in Weight: 80.6 kg Allergies Allergy/AdvReac Type Severity Reaction Status Date / Time allopurinol Allergy Unknown RASH Verified 03/23/20 18:48 spironolactone Allergy Unknown CHEST PAIN Verified 03/23/20 18:48 Medications Home Medications Medication Instructions Recorded Confirmed Last Taken febuxostat [Uloric] 40 mg PO DAILY 11/13/17 03/23/20 03/23/20 furosemide 80 mg PO BID 09/04/19 03/23/20 09/04/19 metoprolol succinate 25 mg PO QAM 09/04/19 03/23/20 03/23/20 semaglutide [Ozempic] 0.5 mg SUBCUT WK 09/04/19 03/23/20 03/16/20 metolazone 2.5 mg PO UD PRN 03/23/20 03/23/20 Unknown potassium chloride 40 meq PO BID 03/23/20 03/23/20 03/23/20 warfarin See Rx Instructions .ROUTE .COMPLEX 03/23/20 03/23/20 Unknown NPO Date Last Intake of Fluids: 03/23/20 Time Last Intake of Fluids: 15:30 Date Last Intake of Solids: 03/23/20 Time Last Intake of Solids: 15:30 Past Medical History Medical History (Updated 03/23/20 @ 20:15 by Charlie Alejandra MD) Anemia of chronic disease Aortic stenosis noted to be severe in medical note Atrial fibrillation Atrial flutter CKD (chronic kidney disease), stage III 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 DM type 2 (diabetes mellitus, type 2) Dyslipidemia Gout History of cardioversion History of DVT (deep vein thrombosis) HTN (hypertension) Obesity (BMI 35.0-39.9 without comorbidity) Osteoarthritis SA node dysfunction Past Family History Family History Father , age 66 Prostate cancer Mother , age 68 Stroke Brother Kidney disease Sister Diabetes Hypoglycemia Past Surgical History Surgical History Cardiac pacemaker in situ History of maze procedure S/P knee surgery S/P mitral valve repair S/P patent foramen ovale closure in 2010 with repair of mitral/tricuspid valve S/P tricuspid valve repair Social History Smoking Status: Never smoker Hx Alcohol Use: No alcohol intake frequency: other Hx Substance Use: No Physical Exam Vital Signs Last Vital Signs Temp 36.6 C 03/23/20 17:46 Pulse 67 03/23/20 20:13 Resp 20 03/23/20 20:13 BP 169/75 H 03/23/20 20:13 Pulse Ox 99 03/23/20 20:11 Testing Laboratory Results 03/23/20 18:42 03/23/20 18:42 PT 19.3 Seconds (9.0-12.0) H 03/23/20 18:42 INR 1.9 (0.9-1.1) H 03/23/20 18:42 APTT 33.6 Seconds (21.0-31.0) H 03/23/20 18:42 Electrocardiogram Date: 03/23/20 Vpaced rate 63 with PVCs Chest X-Ray Date: 03/23/20 XR chest 1V portable HISTORY: 79 years-old Male abd pain acute atypical chest and abdominal pain COMPARISON: Chest radiographs 01/29/2018 TECHNIQUE: Portable AP view of the chest FINDINGS: Cardiac silhouette is enlarged. Prior median sternotomy with cardiac valvular replacement. Atrial exclusion device with left subclavian pacer. No pneumothorax when large pleural effusion. Blunting of the costophrenic angles. Pulmonary vascular congestion with minimal bibasilar densities. To degenerative changes of the shoulders and spine. IMPRESSION: 1. Cardiomegaly with pulmonary vascular congestion. 2. Mild bibasilar densities suggest atelectasis. ACT 112: Negative or not required by law. The above report was generated using voice recognition software. It may contain grammatical, syntax or spelling errors. Electronically signed by: Alfie Dodd M.D. 03/23/2020 7:11 PM Dictated: 03/23/201908Transcribed: 03/23/201908
[2020-03-23] MEDS ORDERED: PHENYLEPHRINE HCL 10 MG/ML VIAL ONE (20:20)
[2020-03-23 20:21] LABS: Magnesium 2.3 mg/dl (1.8-2.4)
[2020-03-23] MEDS ORDERED: NovoLIN-R INSULIN PER UNIT CHARGE ONE ×2 (20:27→20:29)
[2020-03-23] MEDS ORDERED: INSULIN ASPART PER SC STA (20:27)
[2020-03-23] MEDS ORDERED: GLYCOPYRROLATE 0.2 MG/ML VIAL ONE (21:15)
[2020-03-23] MEDS ORDERED: NEOSTIGMINE METHYLSULFATE 5 MG/5 ML SYR ONE (21:15)
[2020-03-23] MEDS ORDERED: ceFAZolin 2000MG 2,000 MG/15 ML SYR IV ONE (21:29)
--- NOTE | 2020-03-23 21:58 | Post Operative Brief Note ---
PG Immediate Post Op with CF Date of Surgery March 23, 2020 Pre & Post Diagnosis Operation Date: 03/23/20 19:30 Pre-Op Diagnosis: Umbilical Hernia Post-Op Diagnosis: Umbilical Hernia I identified the patient and participated in the time-out.: Yes Procedure Operation Date: 03/23/20 19:30 Actual Procedures p Open Incarcerated Umbilical Hernia Repair - Reyes Pino MD Surgeon Reyes Pino MD Retail Banker jean-claude Burrell Estimated Blood Loss 30 Findings Consistent with Post-Op Diagnosis Specimens Specimen Description: A. Incarcerated Umbilical Hernia Sac Drains Nikolas Drain (02/23")
--- NOTE | 2020-03-23 22:06 | Operative Report ---
PG Post Operative Report Pre & Post Diagnosis Operation Date: 03/23/20 19:30 Pre-Op Diagnosis: Incarcerated Umbilical Hernia Post-Op Diagnosis: Incarcerated Umbilical Hernia of Omentum and Bowel I identified the patient and participated in the time-out.: Yes Procedure Operation Date: 03/23/20 19:30 Actual Procedures p Open Incarcerated Umbilical Hernia Repair - Reyes Pino MD The patient was brought into the operating theater general endotracheal anesthesia timeout for Covid protocol the abdomen was prepped with scrub and solution properly draped systemic antibiotics on board timeout was had patient was identified we made a linear incision above the umbilicus approximately 5 cm long deepened through subcutaneous tissue we immediately were met with incarcerated fatty tissue we dissected out some the subcutaneous fascial layers until we were out of the hernial sac which we opened the patient has significant amount of incarcerated fatty tissue and surprisingly even noticed a small loop of bowel which slightly cyanotic once we freed up the incarcerated tissue which we divided and ligated with 2-0 silk we then dissected down to the fascial layer in approximately 12 o'clock position we elevated with an Allis clamp and freed up the linea alba sufficient enough to try to reduce the remaining contents it was another tight layer just distal to the linea alba onto the fatty tissue and on the omentum that we similarly divided once we freed this up we were able then to easily reduce the small bowel and the rest of the omentum intra-abdominally we placed a finger circumferentially around the defect which was approximately 2 cm or so we scored the superior aspect of the fascia through the under aspect of the subcutaneous tissue circumferentially around so we will be able to delineate the defect. We at this point noticed there was some bleeding inside where we had reduced the omentum therefore we brought all this omental tissue back up and sutured again to the point that we were quite satisfied. Of note there was no evidence of any intra-abdominal fluid. Once we entered the hernial sac and delineated the fascia circumferentially we then closed it in the 12 to 6 o'clock position single layer two #1 PDS interrupted suture I do not want to put any mesh in the area since we had evidence that the omentum was incarcerated and the bowel has been slightly compromised as initial color worried about it may been some bacteria in the area subcutaneous tissue was closed over 1/4 inch Nikolas drain that was brought out of the 7 o'clock position through separate stab wound attaching skin edge with 2-0 silk we had excess tissue around the umbilical area then we elliptically excised that to the point that we were slightly in a linear aspect we were able to reapproximate the tissue with vimal dental rolls were placed done in the umbilical crater dressing was applied procedure was tolerated well by the patient estimated blood loss approximately 25 cc addendum Jason Burrell physician historian research assistant was present throughout the case and helped with retraction exposure and wound closure Spoke with his Faina at [phone] after the procedure as I told her I would speak to her preoperatively Surgeon Reyes Pino MD Animal Doctor jean-claude Burrell Estimated Blood Loss 30 Findings Consistent with Post-Op Diagnosis Specimens incarcerated omentum Description of Procedure merda I attest to the content of the Intraoperative Record and any orders documented therein. Any exceptions are noted below.
[2020-03-23] MEDS: fentaNYL citrate 100 MCG/2 ML VIAL IV PRN ×3 (22:34→22:50)
--- NOTE | 2020-03-23 23:07 | Anesthesiology Progress Note ---
Date of Service March 23, 2020 Anesthesia Post Procedure Vital Signs Vital Signs: Temp Pulse Pulse Pulse Resp BP BP 03/23/20 22:40 60 11 L 135/61 03/23/20 22:30 61 14 142/66 H 03/23/20 22:20 64 17 139/58 L 03/23/20 22:11 36.3 C L 66 16 142/57 H 03/23/20 20:13 67 20 169/75 H 03/23/20 20:11 67 20 169/75 H 03/23/20 19:39 62 20 159/73 H 03/23/20 18:54 60 18 164/68 H 03/23/20 17:46 36.6 C 63 18 181/66 H Pulse Ox 03/23/20 22:40 100 03/23/20 22:30 99 03/23/20 22:20 99 03/23/20 22:11 98 03/23/20 20:13 03/23/20 20:11 99 03/23/20 19:39 98 03/23/20 18:54 98 03/23/20 17:46 99 Pain Intensity Abdomen: Pain Intensity: 2 Transfer of Care Handoff Completed per policy Notes Mental Status: alert / awake / arousable Patient Amnestic to Procedure: Yes Nausea / Vomiting: adequately controlled Pain: adequately controlled Airway Patency, RR, SpO2: stable & adequate BP & HR: stable & adequate Hydration State: stable & adequate Anesthetic Complications: no major complications apparent and Pt Satisfied with anesthetic care Notes: The patient is awake and comfortable. His vital signs are stable. Postop BSG is 137.
[2020-03-23] MEDS ORDERED: oxyCODONE HCL SOLN 5 MG/5 ML UDC PO PRN (23:32)
[2020-03-23] MEDS ORDERED: MoRPHine SULFATE 2 MG/ML CARP IV PRN (23:32)
[2020-03-23] MEDS ORDERED: PNEUMOCOCCAL ADMINISTRATION CHARGE ONE (23:49)
[2020-03-23] MEDS ORDERED: PNEUMOCOCCAL POLYSACCHARIDES 25 MCG/0.5 ML VIAL/SYR IM ONE (23:49)
[2020-03-24] MEDS: ACETAMINOPHEN 1,000 MG/100 ML VIAL IV SCH ×2 (00:14→08:57)
[2020-03-24] MEDS: INSULIN ASPART 100 UNITS/ML 3 ML PEN SC SCH ×3 (00:27→12:17)
[2020-03-24] MEDS: ULORIC~ORDER AWAITING ACTION SCH ×2 (00:27→08:56)
[2020-03-24 01:24] VITALS: PULSE 60
[2020-03-24 03:56] VITALS: O2SAT 95
--- NOTE | 2020-03-24 06:43 | Surgery Progress Note ---
Date of Service March 24, 2020 Assessment & Plan (1) Incarcerated umbilical hernia: Patient approximately 12 hours postop repair of an incarcerated umbilical hernia we did find a loop of small bowel initially but cyanotic but then it pinked up this was done by primary repair a [place] with the subcu At this time the patient's will get started on a diet we will reevaluate him later today and if he is comfortable tolerating a diet we will probably remove the subcu Nikolas drain and an incision and plan discharging him if okay with the medical service Present on Admission?: Yes Admission and Anticipated Discharge Date Admission Date: March 23, 2020 Subjective Overall feels well some abdominal discomfort no nausea Physical Exam Physical Exam: Alert coherent appears comfortable The abdomen is soft slight bloody drainage on the dressing patient has a [place] drain in the subcu Results & Data ([facility]) Vital Signs (Past 12 Hours) Vital Signs Temp Pulse Pulse Pulse Resp BP BP 03/24/20 03:48 36.7 C 60 14 122/67 03/24/20 02:20 36.3 C L 60 14 117/62 03/24/20 01:22 36.3 C L 60 14 126/66 03/24/20 00:20 36.3 C L 59 L 14 150/66 H 03/23/20 23:52 36.3 C L 62 14 155/72 H 03/23/20 23:15 36.4 C L 62 18 129/64 03/23/20 23:00 36.3 C L 60 10 L 133/60 03/23/20 22:50 36.3 C L 60 17 137/61 03/23/20 22:40 60 11 L 135/61 03/23/20 22:30 61 14 142/66 H 03/23/20 22:20 64 17 139/58 L 03/23/20 22:11 36.3 C L 66 16 142/57 H 03/23/20 20:13 67 20 169/75 H 03/23/20 20:11 67 20 169/75 H 03/23/20 19:39 62 20 159/73 H 03/23/20 18:54 60 18 164/68 H Pulse Ox 03/24/20 03:48 95 03/24/20 02:20 96 03/24/20 01:22 97 03/24/20 00:20 95 03/23/20 23:52 94 03/23/20 23:15 96 03/23/20 23:00 99 03/23/20 22:50 99 03/23/20 22:40 100 03/23/20 22:30 99 03/23/20 22:20 99 03/23/20 22:11 98 03/23/20 20:13 03/23/20 20:11 99 03/23/20 19:39 98 03/23/20 18:54 98 PG Care Time/CCT Total # of Minutes Spent Total Time Spent with Patient: Total time spent is greater than 50% in coordination of care (as documented) at patient's floor/unit and/or counseling patient: Coding Level of Care Code None Diagnoses Incarcerated umbilical hernia K42.0
[2020-03-24 07:42] LABS: Basophils # (auto) 0.02 K/uL (0-0.2); Basophils % (auto) 0.2 %; Eosinophils % (auto) 2.2 %; Hematocrit (blood only) 34.8 % (42-52); Hemoglobin 11.6 g/dL (14.0-18.0); Immature Granulocytes # (auto) 0.02 K/uL (0.00-0.02); Immature Granulocytes % (auto) 0.2 %; Lymphocytes # (auto) 1.58 K/uL (1.2-3.4); Mean Corpuscular Hemoglobin 30.6 pg (25-34); Mean Corpuscular Hgb Conc 33.3 g/dL (32-36); Mean Corpuscular Volume 91.8 fL (80-100); Mean Platelet Volume 10.3 fL (7.4-10.4); Monocytes # (auto) 0.69 K/uL (0.11-0.59); Monocytes % (auto) 7.4 %; Neutrophils # (auto) 6.76 K/uL (1.4-6.5); Platelet Count 128 K/uL (130-400); RDW Standard Deviation 46.1 fL (36.4-46.3); Red Blood Count 3.79 M/uL (4.7-6.1); White Blood Count 9.27 K/uL (4.8-10.8)
[2020-03-24 07:56] LABS: Prothrombin Time 20.1 Seconds (9.0-12.0)
[2020-03-24 08:10] LABS: Estimated Average Glucose 157 mg/dl; Hemoglobin A1C 7.1 % (4.5-5.6)
[2020-03-24 08:12] LABS: BUN Creatinine Ratio 21.8 (10-20); Creatinine Clr Calc Pharmacy 33.6 ml/min; Est GFR (African American) 40.6
[2020-03-24] MEDS ORDERED: METOPROLOL SUCC 25MG EXT REL TAB PO SCH (09:00)
--- NOTE | 2020-03-24 11:10 | Hospitalist Progress Note ---
Date of Service March 24, 2020 Assessment & Plan (1) Incarcerated umbilical hernia: Final Assessment and Recommendations as follows : Incarcerated umbilical hernia S/P Open Incarcerated Umbilical Hernia Repair on 03/23 COVID 19 ruled out History of diastolic heart failure with a EF of 55% History of SSD s/p PPM on Coumadin History of coronary artery disease History of aortic stenosis status post AVR History of hypertension History of obstructive sleep apnea on CPAP; compliant History of diabetes mellitus type 2; recent hemoglobin A1c of 7.2 History of chronic anemia Overall patient is doing okay today. Hemodynamically doing fine. Pain is well controlled. Would recommend pain management as per primary team. Will Coumadin when it seems reasonable to start and risk of bleeding is low. INR today at 2.0 Patient appears euvolemic. Start MIX MILL TENDER diuretic tomorrow once patient has adeuate PO intake. Limit IV fluids intake. Repeat hemoglobin A1c is pending. Glycemic control as per pharmacy. Continue with MIX MILL TENDER Toprol XL 25 mg daily. Admission and Anticipated Discharge Date Admission Date: March 23, 2020 Subjective Patient is doing okay this morning. He is awake, alert and oriented x3. Reports pain is fairly under control. He denies any nausea or vomiting. Denies any headache or dizziness. Denies any chest pain or shortness of breath. Review of Systems Review of Systems: All systems reviewed & are unremarkable except as noted in HPI & below Physical Exam Physical Exam: General: A&Ox3. HENT: NCAT, MMM, EOMI Eyes: PERRLA Neck: Supple, normal range of motion CVS: normal rate and rhythm Resp: b/l decreased breath sounds Abdomen: Soft, central dressing in place, minimally saturated Extremities: No c/c/e Neuro: face symmetric, no gross focal deficits appreciated Skin: warm and dry, no rashes/lesions/errythema MSK: normal ROM, no joint swelling/erythema Results & Data Results & Data ([facility]) Vital Signs (Past 12 Hours) Vital Signs Temp Pulse Pulse Pulse Resp BP Pulse Ox 03/24/20 07:30 60 03/24/20 07:23 36.4 C L 60 20 109/56 L 95 03/24/20 03:48 36.7 C 60 14 122/67 95 03/24/20 02:20 36.3 C L 60 14 117/62 96 03/24/20 01:22 36.3 C L 60 14 126/66 97 03/24/20 00:20 36.3 C L 59 L 14 150/66 H 95 03/23/20 23:52 36.3 C L 62 14 155/72 H 94 03/23/20 23:15 36.4 C L 62 18 129/64 96
[2020-03-24 11:15] VITALS: BP 115/62; TEMP 98.1
--- NOTE | 2020-03-24 14:20 | Electrocardiogram Report ---
Test Reason : Blood Pressure : / mmHG Vent. Rate : 063 BPM Atrial Rate : 061 BPM P-R Int : 000 ms QRS Dur : 184 ms QT Int : 462 ms P-R-T Axes : 000 144 -20 degrees QTc Int : 472 ms Ventricular-paced rhythm with occasional Premature ventricular complexes Abnormal ECG When compared with ECG of 30-JAN-2018 06:10, Premature ventricular complexes are now Present Confirmed by Ruddy Candelaria ([id number]) on 03/24/2020 2:20:21 PM Referred By: REFERRED SELF Confirmed By:Ruddy Candelaria
--- NOTE | 2020-04-04 05:41 | Discharge Summary (DS) ---
ADMISSION DIAGNOSIS: Incarcerated ventral hernia. DISCHARGE DIAGNOSIS: Incarcerated ventral hernia. HOSPITAL COURSE: This is a patient who presented to [facility] Emergency Department on 03/23/2020. The patient had a previous history of a ventral hernia in the umbilical region for a number of years. On the day of admission, the patient noted that this hernia appeared to be very enlarged and tender to touch. He came into the Emergency Department where he was evaluated by Dr. Pino and it was felt that due to the size of the patient's ventral hernia along with tenderness that he should be taken to the operating room. Dr. Pino did take the patient to the operating room on date of admission where he successfully reduced the hernia and performed a primary closure without utilizing mesh. The day following his surgery, he was doing well, tolerating a diet and deemed stable for discharge home. He was discharged home on postoperative day #1. He was provided with appropriate wound care, diet and followup along with activity instructions. He will follow up with Dr. Pino in the office in 1-2 weeks.
== END 2020-03-24 17:27 | disposition home or self-care (01) | DRG 354 ==
LOC: ED 17:39 → OR 20:13 → 2N 22:05
DX: K42.0 Umbilical hernia with obstruction, without gangrene; E11.9 Type 2 diabetes mellitus without complications; G47.33 Obstructive sleep apnea (adult) (pediatric); E78.5 Hyperlipidemia, unspecified; Z79.01 Long term (current) use of anticoagulants; Z86.718 Personal history of other venous thrombosis and embolism; M10.9 Gout, unspecified; I50.32 Chronic diastolic (congestive) heart failure; I13.0 Hypertensive heart and chronic kidney disease with heart failure and stage 1 through stage 4 chronic kidney disease, or unspecified chronic kidney disease; D64.9 Anemia, unspecified; N18.30 Chronic kidney disease, stage 3 unspecified